=== PATIENT | male | born 1960 | race Caucasian/White ===

== ENCOUNTER 2017-04-21 07:17 | Inpatient (IN) | payer MEDICAID ==
[~2017-04-21] VITALS: Ht 177.8 cm; Wt 150.6 kg
[2017-04-21] MEDS ORDERED: SODIUM CHLORIDE 0.9% 1,000 ML IV ONE (08:14)
[2017-04-21] MEDS ORDERED: ASPirin 81 mg TAB PO ONE (08:15)
[2017-04-21] MEDS ORDERED: MORPHINE SULFATE 10 MG/ML INJ 1ML SDV IV ONE (08:15)
[2017-04-21] MEDS ORDERED: PROMETHAZINE HCL 25 MG/ML 1ML IV ONE (08:15)
[2017-04-21 08:34] LABS: Urine Bilirubin Negative (Negative); Urine Blood Negative /uL (Negative); Urine Color Yellow (Yellow); Urine Glucose 4+ mg/dL (Normal); Urine Ketone Negative (Negative); Urine Nitrite Negative (Negative); Urine RBC 1 /hpf (0 - 3)
[2017-04-21 08:56] LABS: Eosinophils # (auto) 0.2 uL; Hematocrit 51.3 % (41.0-53.0); Monocytes # (auto) 0.6 uL; Neutrophils # (auto) 5.7 uL
[2017-04-21 08:58] LABS: Basophils # (auto) 0.1 uL; Basophils % (auto) 0.7 % (0.0-2.0); Eosinophils % (auto) 2.3 % (0.0-7.0); Hemoglobin 16.9 g/dL (13.5-17.5); Lymphocytes # (auto) 1.4 uL; Lymphocytes % (auto) 17.5 % (10.0-50.0); Mean Corpuscular Hemoglobin 27.9 pg (28.0-32.0); Mean Corpuscular Hgb Conc. 32.9 g/dL (32.0-36.0); Mean Corpuscular Volume 84.8 fL (80.0-100.0); Mean Platelet Volume 9.2 fL (6.9-10.8); Monocytes % (auto) 7.8 % (0.0-12.0); Neutrophils % (auto) 71.7 % (37.0-80.0); Nucleated Red Blood Cells % 0.1 %; Red Cell Distribution Width 14.9 % (11.8-14.3); White Blood Cell 7.9 10^3/uL (4.4-10.8)
[2017-04-21 08:59] LABS: Platelet Count (auto) 141 10^3/uL (140-450)
[2017-04-21 09:10] LABS: INR 0.98 (0.9-1.15); Partial Thromboplastin Time 29.6 sec (22.64-33.71); Prothrombin Time 10.7 sec (9.37-12.3)
[2017-04-21 09:21] LABS: Albumin 3.4 g/dL (3.4-5.0); Alkaline Phosphatase 110 U/L (45-117); Anion Gap 7 (5-15); Aspartate Aminotransferase 13 U/L (15-37); BUN/Creatinine Ratio 17.6; Bilirubin, Total 0.8 mg/dL (0.2-1.0); Blood Urea Nitrogen 22 mg/dL (7-18); Calcium 8.9 mg/dL (8.5-10.1); Carbon Dioxide 28 mmol/L (21-32); Chloride 104 mmol/L (98-107); GFR African American 77 mL/min; GFR Non-African American 64 mL/min; Glucose 192 mg/dL (74-106); Magnesium 2.5 mg/dL (1.6-2.6); Potassium 4.2 mmol/L (3.5-5.1); Sodium 139 mmol/L (136-145); Total Protein 7.4 g/dL (6.4-8.2)
[2017-04-21 10:40] LABS: B-Type Natriuretic Peptide 170 pg/mL (0-100); Temperature: 21 C (20.0-25.0)
[2017-04-21] MEDS ORDERED: SODIUM CHLORIDE 0.9% 1,000 ML IV SCH (11:04)
[2017-04-21] MEDS ORDERED: NITROGLYCERIN 0.4 MG SL TAB SL PRN (11:15)
[2017-04-21] MEDS ORDERED: HYDROcodone-ACET 5/325MG TAB PO PRN (11:15)
[2017-04-21] MEDS ORDERED: ENOXAPARIN SOD 40 MG/0.4 ML SYRINGE SC ONE (11:15)
[2017-04-21] MEDS ORDERED: NITROGLYCERIN 0.2MG/HR TOPICAL PATCH TD ONE (11:15)
[2017-04-21] MEDS ORDERED: TEMAZEPAM 15 MG CAP PO PRN (11:15)
[2017-04-21] MEDS ORDERED: PROMETHAZINE HCL 25 MG/ML 1ML IV PRN (11:15)
[2017-04-21] MEDS ORDERED: LACTULOSE 20Gm/30ML SOLN PO PRN (11:15)
[2017-04-21] MEDS ORDERED: ACETAMINOPHEN 500 MG TAB PO PRN (11:15)
[2017-04-21] MEDS ORDERED: DEXTROSE (50%) 50ML SYRG IV PRN (11:15)
[2017-04-21] MEDS ORDERED: LORazepam 0.5 MG TAB PO PRN (11:15)
[2017-04-21] MEDS ORDERED: MORPHINE SULFATE 10 MG/ML INJ 1ML SDV IV PRN ×2 (11:15)
[2017-04-21] MEDS ORDERED: PANTOPRAZOLE 40 MG TAB PO ONE (11:30)
[2017-04-21] MEDS: ACCU-CHEK COMFORT CURVE STRIP VI SCH ×3 (11:48→23:30)
[2017-04-21] MEDS: InsuLIN REG 1unit/0.01ml Soln (100units/ml) SC SCH ×3 (11:53→23:32)
[2017-04-21] MEDS ORDERED: METOPROLOL TARTRATE 25 MG TAB PO ONE (12:15)
[2017-04-21] MEDS ORDERED: FUROSEMIDE 20 MG TAB PO ONE (12:15)
[2017-04-21] MEDS ORDERED: HALOPERIDOL LACTATE 5 MG/ML INJ VIAL IM PRN (18:45)
[2017-04-21] MEDS ORDERED: DIAZEPAM 5 MG/ML 2ML SYRG IV SCH (18:45)
[2017-04-21] MEDS ORDERED: ATORVASTATIN 20 MG TAB PO SCH (22:00)
[2017-04-21] MEDS: AMIODARONE HCL 200 MG TAB PO SCH (23:32)
[2017-04-21] MEDS: METHYLDOPA 250 MG TAB PO SCH (23:32)
[2017-04-21] MEDS: METOPROLOL TARTRATE 25 MG TAB PO SCH (23:32)
[2017-04-22] MEDS: SODIUM CHLORIDE 0.9% 1,000 ML IV SCH ×2 (02:23→04:35)
[2017-04-22 04:35] VITALS: BP 128/82
[2017-04-22 04:42] LABS: Cholesterol 165 mg/dL (< 200); HDL Cholesterol 27 mg/dL (40-59); LDL Cholesterol 130 mg/dL (< 100); Triglycerides 133 mg/dL (< 150)
[2017-04-22 04:45] VITALS: BP 113/61
[2017-04-22] MEDS: ACCU-CHEK COMFORT CURVE STRIP VI SCH ×4 (07:00→22:00)
[2017-04-22] MEDS: InsuLIN REG 1unit/0.01ml Soln (100units/ml) SC SCH ×4 (07:00→22:00)
[2017-04-22] MEDS ORDERED: LIDOCAINE 2%HCL (LOCAL ANESTH.) INJ 20ML MDV ONE (07:16)
[2017-04-22] MEDS ORDERED: IOHEXOL 350 MG/ML 100ML IJ ONE ×2 (07:16→09:11)
[2017-04-22] MEDS ORDERED: fentaNYL CITRATE 100 MCG/2 ML VL ONE (07:29)
[2017-04-22] MEDS ORDERED: MIDAZOLAM HCL 1MG/1ML-2 ML VIAL ONE (07:30)
[2017-04-22 08:24] VITALS: BP 109/60
[2017-04-22] MEDS ORDERED: ANGIOMAX 250 MG VIAL IV ONE (08:30)
[2017-04-22] MEDS ORDERED: ADENOSINE 128 MG in GIVE UN-DILUTED 0 ML IV ONE (08:45)
[2017-04-22] MEDS ORDERED: PANTOPRAZOLE 40 MG TAB PO SCH (10:00)
[2017-04-22] MEDS ORDERED: DIGOXIN 0.125 MG TAB PO SCH (10:00)
[2017-04-22] MEDS: ASPirin 81 mg TAB PO SCH (10:34)
[2017-04-22] MEDS: amLODIPine BESYLATE 5 MG TAB PO SCH (10:34)
[2017-04-22] MEDS: PANTOPRAZOLE 40 MG TAB PO SCH (10:34)
[2017-04-22] MEDS: AMIODARONE HCL 200 MG TAB PO SCH ×2 (10:35→23:28)
[2017-04-22] MEDS: METOPROLOL TARTRATE 25 MG TAB PO SCH ×2 (10:35→23:27)
[2017-04-22] MEDS: FUROSEMIDE 20 MG TAB PO SCH (10:35)
[2017-04-22] MEDS: METOLAZONE 5 MG TAB PO SCH (10:36)
[2017-04-22] MEDS: ENOXAPARIN SOD 40 MG/0.4 ML SYRINGE SC SCH (10:36)
[2017-04-22] MEDS: ENALAPRIL MALEATE 2.5 MG TAB PO SCH (10:36)
[2017-04-22] MEDS: NITROGLYCERIN 0.2MG/HR TOPICAL PATCH TD SCH (10:37)
[2017-04-22] MEDS ORDERED: VALS320T15 PO (11:57)
[2017-04-22] MEDS ORDERED: FURO40TA4 PO (11:57)
[2017-04-22] MEDS ORDERED: DIG0125T PO (11:57)
[2017-04-22] MEDS ORDERED: METF-371 PO (11:57)
[2017-04-22] MEDS ORDERED: AMLO5TAB2 PO (11:57)
[2017-04-22] MEDS ORDERED: HYDR25TA4 PO (11:57)
[2017-04-22] MEDS ORDERED: CARV25TA55 PO (11:57)
[2017-04-22] MEDS ORDERED: METO5TAB56 PO (11:57)
[2017-04-22] MEDS ORDERED: METH250T21 PO (11:57)
[2017-04-22] MEDS ORDERED: DAPA1TAB2 PO (11:57)
[2017-04-22] MEDS ORDERED: GLIP-116 PO (11:57)
[2017-04-22] MEDS: METHYLDOPA 250 MG TAB PO SCH ×2 (12:06→23:40)
[2017-04-22 12:58] VITALS: BP 131/88
[2017-04-22 16:57] VITALS: BP 117/75
[2017-04-22] MEDS ORDERED: SODIUM BICARBONATE 50ML VIAL 150 ML in D5W 5% 1,000 ML IV SCH (17:15)
[2017-04-22 22:42] VITALS: BP 116/60
[2017-04-22] MEDS: ATORVASTATIN 20 MG TAB PO SCH (23:28)
[2017-04-23 05:00] VITALS: BP 97/58
[2017-04-23] MEDS: InsuLIN REG 1unit/0.01ml Soln (100units/ml) SC SCH ×4 (07:00→22:00)
[2017-04-23] MEDS: ACCU-CHEK COMFORT CURVE STRIP VI SCH ×4 (07:07→22:00)
[2017-04-23 07:08] LABS: BUN/Creatinine Ratio 19.4; Calcium 8.8 mg/dL (8.5-10.1); Potassium 3.5 mmol/L (3.5-5.1)
[2017-04-23 08:00] VITALS: BP 99/86
[2017-04-23 09:00] VITALS: BP 97/59
[2017-04-23] MEDS: ENALAPRIL MALEATE 2.5 MG TAB PO SCH (10:00)
[2017-04-23] MEDS: AMIODARONE HCL 200 MG TAB PO SCH ×2 (10:00→22:54)
[2017-04-23] MEDS: ASPirin 81 mg TAB PO SCH (10:00)
[2017-04-23] MEDS: ENOXAPARIN SOD 40 MG/0.4 ML SYRINGE SC SCH (10:00)
[2017-04-23] MEDS: amLODIPine BESYLATE 5 MG TAB PO SCH (10:00)
[2017-04-23] MEDS: PANTOPRAZOLE 40 MG TAB PO SCH (10:00)
[2017-04-23] MEDS: FUROSEMIDE 20 MG TAB PO SCH (10:00)
[2017-04-23] MEDS: METHYLDOPA 250 MG TAB PO SCH ×2 (10:00→22:55)
[2017-04-23] MEDS: NITROGLYCERIN 0.2MG/HR TOPICAL PATCH TD SCH (10:00)
[2017-04-23] MEDS: METOPROLOL TARTRATE 25 MG TAB PO SCH ×2 (10:00→22:55)
[2017-04-23] MEDS: METOLAZONE 5 MG TAB PO SCH (10:00)
[2017-04-23] MEDS ORDERED: fentaNYL CITRATE 100 MCG/2 ML VL ONE (12:11)
[2017-04-23] MEDS ORDERED: ANGIOMAX 250 MG VIAL IV ONE (12:11)
[2017-04-23] MEDS ORDERED: MIDAZOLAM HCL 1MG/1ML-2 ML VIAL ONE (12:12)
[2017-04-23] MEDS ORDERED: ATROPINE SULF 0.5 MG/5ML SYR ONE (12:12)
[2017-04-23] MEDS ORDERED: DOPamine 1600MCG/ML D5W 0 ML IV ONE (12:12)
[2017-04-23] MEDS ORDERED: SODIUM CHL 0.9% 100 ML ONE (12:13)
[2017-04-23] MEDS ORDERED: LIDOCAINE 2%HCL (LOCAL ANESTH.) INJ 20ML MDV ONE (12:50)
[2017-04-23] MEDS ORDERED: IODIXANOL 320MG/ML 100ML BTL IV ONE (12:50)
[2017-04-23 13:00] VITALS: BP 145/95
[2017-04-23] MEDS ORDERED: CLOPIDOGREL 300 MG TAB ONE (15:16)
[2017-04-23] MEDS ORDERED: CLOPIDOGREL 300 MG TAB PO ONE (15:30)
[2017-04-23] MEDS ORDERED: ACETAMINOPHEN 500 MG TAB PO PRN (15:30)
[2017-04-23] MEDS ORDERED: HYDROcodone-ACET 5/325MG TAB PO PRN (15:30)
[2017-04-23 17:41] VITALS: BP 142/88
[2017-04-23 22:00] VITALS: BP 121/69
[2017-04-23] MEDS: ATORVASTATIN 20 MG TAB PO SCH (22:54)
[2017-04-24 05:00] VITALS: BP 133/89
[2017-04-24] MEDS: InsuLIN REG 1unit/0.01ml Soln (100units/ml) SC SCH ×2 (06:31→15:05)
[2017-04-24] MEDS: ACCU-CHEK COMFORT CURVE STRIP VI SCH ×2 (06:31→15:05)
[2017-04-24 06:37] LABS: Basophils # (auto) 0 uL; Basophils % (auto) 0.4 % (0.0-2.0); Eosinophils # (auto) 0.1 uL; Eosinophils % (auto) 1.6 % (0.0-7.0); Hematocrit 45.7 % (41.0-53.0); Hemoglobin 15.5 g/dL (13.5-17.5); Lymphocytes # (auto) 1.1 uL; Lymphocytes % (auto) 14.1 % (10.0-50.0); Mean Corpuscular Hemoglobin 28.5 pg (28.0-32.0); Mean Corpuscular Hgb Conc. 33.8 g/dL (32.0-36.0); Mean Corpuscular Volume 84.3 fL (80.0-100.0); Mean Platelet Volume 9.5 fL (6.9-10.8); Monocytes # (auto) 0.8 uL; Monocytes % (auto) 9.6 % (0.0-12.0); Neutrophils % (auto) 74.3 % (37.0-80.0); Nucleated Red Blood Cells % 0.2 %; Platelet Count (auto) 136 10^3/uL (140-450); Red Cell Distribution Width 14.4 % (11.8-14.3); White Blood Cell 8.1 10^3/uL (4.4-10.8)
[2017-04-24 06:54] LABS: Potassium 3.1 mmol/L (3.5-5.1)
[2017-04-24 06:59] LABS: BUN/Creatinine Ratio 18.6; Calcium 8.7 mg/dL (8.5-10.1)
[2017-04-24 09:07] VITALS: BP 106/72
[2017-04-24] MEDS: ASPirin 81 mg TAB PO SCH (09:45)
[2017-04-24] MEDS: AMIODARONE HCL 200 MG TAB PO SCH (09:46)
[2017-04-24] MEDS: METOPROLOL TARTRATE 25 MG TAB PO SCH (09:47)
[2017-04-24] MEDS: amLODIPine BESYLATE 5 MG TAB PO SCH (09:47)
[2017-04-24] MEDS: PANTOPRAZOLE 40 MG TAB PO SCH (09:48)
[2017-04-24] MEDS: ENALAPRIL MALEATE 2.5 MG TAB PO SCH (09:48)
[2017-04-24] MEDS: METOLAZONE 5 MG TAB PO SCH (09:48)
[2017-04-24] MEDS: ENOXAPARIN SOD 40 MG/0.4 ML SYRINGE SC SCH (09:50)
[2017-04-24] MEDS: FUROSEMIDE 20 MG TAB PO SCH (09:50)
[2017-04-24] MEDS ORDERED: CLOPIDOGREL BISULFATE 75 MG TAB PO SCH (10:00)
[2017-04-24] MEDS: NITROGLYCERIN 0.2MG/HR TOPICAL PATCH TD SCH (10:00)
[2017-04-24] MEDS: METHYLDOPA 250 MG TAB PO SCH (10:02)
[2017-04-24 13:25] VITALS: BP 120/71
[2017-04-24 14:49] VITALS: BP 106/72
[2017-04-24] MEDS ORDERED: ASPI-378 PO (14:57)
[2017-04-24] MEDS ORDERED: CLOP75TA28 PO (14:57)
[2017-04-24] MEDS ORDERED: ATOR20TA50 PO (14:57)
[2017-04-24] MEDS ORDERED: POTASSIUM CHL 20 Meq TABLET PO ONE (15:00)
== END 2017-04-24 15:55 | disposition home or self-care (01) | DRG 175 ==
LOC: ER 07:17 → TELE 07:18 → TELE-EAST 04-22 04:35
PROVIDERS: ADMIT Internal Medicine; ATTEND Internal Medicine
PROC: 4A023N7 Measurement of Cardiac Sampling and Pressure, Left Heart, Percutaneous Approach (ICD-10-PCS; principal; 2017-04-22)
PROC: B2111ZZ Fluoroscopy of Multiple Coronary Arteries using Low Osmolar Contrast (ICD-10-PCS; 2017-04-22)
PROC: B2151ZZ Fluoroscopy of Left Heart using Low Osmolar Contrast (ICD-10-PCS; 2017-04-22)
PROC: 027137Z Dilation of Coronary Artery, Two Arteries with Four or More Drug-eluting Intraluminal Devices, Percutaneous Approach (ICD-10-PCS; 2017-04-23)
DX: I25.10 Atherosclerotic heart disease of native coronary artery without angina pectoris (principal); E11.21 Type 2 diabetes mellitus with diabetic nephropathy; I42.9 Cardiomyopathy, unspecified; I11.0 Hypertensive heart disease with heart failure; I50.9 Heart failure, unspecified; Z68.42 Body mass index [BMI] 45.0-49.9, adult; E11.40 Type 2 diabetes mellitus with diabetic neuropathy, unspecified; E11.22 Type 2 diabetes mellitus with diabetic chronic kidney disease; E11.65 Type 2 diabetes mellitus with hyperglycemia; E66.01 Morbid (severe) obesity due to excess calories; E78.5 Hyperlipidemia, unspecified; I13.0 Hypertensive heart and chronic kidney disease with heart failure and stage 1 through stage 4 chronic kidney disease, or unspecified chronic kidney disease; I48.92 Unspecified atrial flutter; M19.90 Unspecified osteoarthritis, unspecified site; N18.2 Chronic kidney disease, stage 2 (mild); K59.00 Constipation, unspecified; F41.9 Anxiety disorder, unspecified; G47.00 Insomnia, unspecified; I83.92 Asymptomatic varicose veins of left lower extremity; I25.2 Old myocardial infarction; Z82.49 Family history of ischemic heart disease and other diseases of the circulatory system
CPT/HCPCS: 36415; 71010; 80048; 80053; 80061; 80162; 80307; 81001; 82550; 82962; 83036; 83735; 83880; 84443; 84484; 85025; 85379; 85610; 85652; 85730; 86141; 92928; 92929; 93005; 93306; 93458; 93886; 94761; 96374; 96375; 99152; 99153; C1874; C1887; J0153; J0461; J1815; J2250; Q9967

== ENCOUNTER → 2017-07-05 | Outpatient (CLI) | payer MEDICAID ==
[~2017-07-05] VITALS: Ht 1 cm; Wt 0.5 kg
[~2017-07-05] MED LIST: AMLO5TAB2 PO; ASPI-378 PO; ATOR20TA50 PO; CARV25TA55 PO; CLOP75TA28 PO; DAPA1TAB4 PO; DIG0125T PO; FURO40TA4 PO; GLIP-116 PO; METF-371 PO; METH250T21 PO; METO5TAB56 PO; VALS320T15 PO
== END | disposition home or self-care (01) ==
LOC: Rad HDHVI 13:50
PROVIDERS: ATTEND Internal Medicine Cardiovascular Disease
DX: I08.1 Rheumatic disorders of both mitral and tricuspid valves (principal); I50.9 Heart failure, unspecified; I42.9 Cardiomyopathy, unspecified
CPT/HCPCS: 93306

== ENCOUNTER → 2018-08-19 | Outpatient (CLI) | payer MEDICAID ==
[~2018-08-19] MED LIST changes: +AMLO5TAB13 PO; -AMLO5TAB2 PO
== END | disposition home or self-care (01) ==
LOC: Rad HDHVI 10:57
PROVIDERS: ATTEND Internal Medicine
DX: I35.8 Other nonrheumatic aortic valve disorders (principal); I48.91 Unspecified atrial fibrillation; I11.0 Hypertensive heart disease with heart failure; I50.9 Heart failure, unspecified; I42.9 Cardiomyopathy, unspecified
CPT/HCPCS: 93306

== ENCOUNTER → 2018-09-19 | Outpatient (CLI) | payer MEDICAID ==
[~2018-09-19] VITALS: Ht 177.8 cm; Wt 148.3 kg
[~2018-09-19] MED LIST changes: +ADENOSINE 125 MG in GIVE UN-DILUTED 0 ML IV ONE; +ADENOSINE 90 MG/30 ML INJ IV ONE
--- NOTE | 2018-09-19 17:03 | NUR ---
Patient seen for Adenosine stress test. EKG showing Atrial flutter, spoke with Dr. Parnell and new orders received and carried out. Patient educated on medication changes and verbalized understanding. Appointment made for patient to see Dr. Coker tomorrow, 09/20/18 regarding BLE pitting edema, wound to left lateral lower extremity, & atrial flutter.
== END | disposition home or self-care (01) ==
LOC: Rad HDHVI 14:08
PROVIDERS: ATTEND Internal Medicine Cardiovascular Disease
DX: E11.9 Type 2 diabetes mellitus without complications (principal); I11.0 Hypertensive heart disease with heart failure; I50.9 Heart failure, unspecified; R63.8 Other symptoms and signs concerning food and fluid intake; E29.1 Testicular hypofunction; I42.9 Cardiomyopathy, unspecified; R06.02 Shortness of breath
CPT/HCPCS: 78452; 82962; 93005; 96374; 96375; A9500; J0153

== ENCOUNTER 2019-03-28 15:49 | Inpatient (IN) | payer MEDICAID ==
[~2019-03-28] VITALS: Ht 177.8 cm; Wt 147.0 kg
[2019-03-28 08:00] VITALS: BP 111/75
[~2019-03-28 15:49] MED LIST changes: -ADENOSINE 125 MG in GIVE UN-DILUTED 0 ML IV ONE; -ADENOSINE 90 MG/30 ML INJ IV ONE; -AMLO5TAB13 PO; +AMLO5TAB15 PO; -GLIP-116 PO; +GLIP10TA9 PO
[2019-03-28 16:27] LABS: Basophils # (auto) 0 uL; Basophils % (auto) 0.5 % (0.0-2.0); Eosinophils # (auto) 0.1 uL; Eosinophils % (auto) 2.1 % (0.0-7.0); Hematocrit 42.1 % (41.0-53.0); Hemoglobin 13.4 g/dL (13.5-17.5); Lymphocytes # (auto) 0.9 uL; Lymphocytes % (auto) 17.5 % (10.0-50.0); Mean Corpuscular Hemoglobin 27.5 pg (28.0-32.0); Mean Corpuscular Hgb Conc. 31.9 g/dL (32.0-36.0); Mean Corpuscular Volume 86.3 fL (80.0-100.0); Monocytes # (auto) 0.4 uL; Neutrophils # (auto) 3.8 uL; Neutrophils % (auto) 72.9 % (37.0-80.0); Nucleated Red Blood Cells % 0.1 %; Platelet Count (auto) 164 10^3/uL (140-450); Red Blood Cells 4.88 10^6/uL (4.5-5.90); White Blood Cell 5.3 10^3/uL (4.4-10.8)
[2019-03-28 16:31] LABS: INR 1.48 (0.9-1.15); Partial Thromboplastin Time 40.2 sec (23.64-32.05)
[2019-03-28 16:34] LABS: Alanine Aminotransferase 15 U/L (16-61); Albumin 2.9 g/dL (3.4-5.0); Anion Gap 6 (5-15); Blood Urea Nitrogen 25 mg/dL (7-18); Calcium 8.5 mg/dL (8.5-10.1); Carbon Dioxide 30 mmol/L (21-32); Chloride 107 mmol/L (98-107); Glucose 156 mg/dL (74-106); Potassium 3.9 mmol/L (3.5-5.1); Sodium 143 mmol/L (136-145)
[2019-03-28 16:39] LABS: Alkaline Phosphatase 201 U/L (45-117); Aspartate Aminotransferase 13 U/L (15-37); BUN/Creatinine Ratio 17.1; GFR African American 64 mL/min; GFR Non-African American 53 mL/min; Total Protein 6.9 g/dL (6.4-8.2)
[2019-03-28] MEDS ORDERED: FUROSEMIDE 40 MG/4 ML VIAL IV ONE (17:45)
[2019-03-28] MEDS ORDERED: cefTRIAXone 1GM/50ML D5W 50 ML IV ONE (18:45)
[2019-03-28] MEDS ORDERED: cloNIDine HCL 0.1 MG TAB PO PRN (18:45)
[2019-03-28] MEDS ORDERED: NITROGLYCERIN 0.4 MG SL TAB SL PRN (18:45)
[2019-03-28] MEDS ORDERED: MORPHINE SULF INJ 2 MG/ML SYRINGE 1ML IV PRN (18:45)
--- NOTE | 2019-03-28 20:31 | NUR ---
Telemetry admit from ER Patient admitted to Telemetry unit and oriented to primary RN, unit, room, bed, and unit policies regarding patient care and visiting hours. Patient now on continuous telemetry monitoring, tele box #64 and telemetry reading on arrival to unit is sinus rhythm. Patient placed on bedside oxygen at 3 l/min, weighed by bedscale and encouraged to call if they need something. All questions and concerns addressed, patient verbalized understanding. Bed is in lowest position and locked. Call light within reach. Board updated.
--- NOTE | 2019-03-28 20:51 | NUR ---
Patient is in Atrial flutter at this time. EKG taken. Will notify hospitalist of results.
--- NOTE | 2019-03-28 20:59 | NUR ---
Spoke to REGINE Irvin and showed her EKG that revealed Atrial Flutter with rate of 63 bpm. Per TITLE ATTORNEY, continue monitoring. Notified her of patient's history of DM and elevated blood glucose on admission. Per REGINE Irvin, start regular insulin set protocol for mild scale ACHS. Order repeated, verified, and placed.
[2019-03-28] MEDS ORDERED: DEXTROSE (50%) 50ML SYRG IV PRN (21:15)
[2019-03-28 21:52] LABS: Urine Bacteria NONE SEEN /hpf (None Seen); Urine Blood Negative /uL (Negative); Urine Mucus FEW (None Seen); Urine WBC <1 /hpf (0 - 3)
[2019-03-28] MEDS: InsuLIN REG 1unit/0.01ml Soln (100units/ml) SC SCH (22:24)
[2019-03-28] MEDS: ATORVASTATIN 20 MG TAB PO SCH (22:24)
[2019-03-28] MEDS: CLINDAMYCIN 300MG IV 50 ML IV SCH (22:24)
[2019-03-28] MEDS: ACCU-CHEK COMFORT CURVE STRIP VI SCH (22:24)
[2019-03-28] MEDS: CARVEDILOL 3.125 MG TAB PO SCH (22:24)
[2019-03-28 22:50] VITALS: BP 104/65
--- NOTE | 2019-03-28 23:07 | NUR ---
Patient refused Regular Insulin for blood glucose of 145 mg/dl because he does not take regular insulin at home and his blood glucose frequently drops during the night.
[2019-03-29] MEDS ORDERED: HYDR25TA4 PO (01:44)
[2019-03-29] MEDS ORDERED: RIV20T PO (01:44)
[2019-03-29] MEDS ORDERED: INSLANTI SC (01:44)
[2019-03-29] MEDS ORDERED: LOSA-69 PO (01:44)
[2019-03-29] MEDS ORDERED: CLON0.2D6 PO (01:44)
[2019-03-29 05:23] LABS: Basophils # (auto) 0 uL; Basophils % (auto) 0.5 % (0.0-2.0); Eosinophils # (auto) 0.1 uL; Eosinophils % (auto) 2.2 % (0.0-7.0); Hematocrit 39.3 % (41.0-53.0); Hemoglobin 12.9 g/dL (13.5-17.5); Lymphocytes # (auto) 1.2 uL; Lymphocytes % (auto) 19.5 % (10.0-50.0); Mean Corpuscular Hemoglobin 28.2 pg (28.0-32.0); Mean Corpuscular Hgb Conc. 32.7 g/dL (32.0-36.0); Mean Corpuscular Volume 86.2 fL (80.0-100.0); Monocytes # (auto) 0.6 uL; Monocytes % (auto) 9.5 % (0.0-12.0); Neutrophils # (auto) 4.1 uL; Neutrophils % (auto) 68.3 % (37.0-80.0); Platelet Count (auto) 159 10^3/uL (140-450); Red Blood Cells 4.56 10^6/uL (4.5-5.90); Red Cell Distribution Width 17.2 % (11.8-14.3); White Blood Cell 5.9 10^3/uL (4.4-10.8)
[2019-03-29 05:25] VITALS: BP 114/65
[2019-03-29 05:52] LABS: BUN/Creatinine Ratio 18.4; Calcium 8.6 mg/dL (8.5-10.1); Potassium 3.5 mmol/L (3.5-5.1)
[2019-03-29] MEDS: CLINDAMYCIN 300MG IV 50 ML IV SCH ×3 (06:24→22:38)
[2019-03-29] MEDS: InsuLIN REG 1unit/0.01ml Soln (100units/ml) SC SCH ×4 (06:25→22:55)
[2019-03-29] MEDS: FUROSEMIDE 40 MG/4 ML VIAL IV SCH ×2 (06:25→17:55)
[2019-03-29] MEDS: ACCU-CHEK COMFORT CURVE STRIP VI SCH ×4 (06:26→22:56)
--- NOTE | 2019-03-29 07:00 | NUR ---
Opening Shift Note Assumed care of patient, awake and alert. No S/S of distress/SOB or pain. Instructed on POC and to call for assist PRN, will continue to monitor for changes Q1hr and PRN.
[2019-03-29 09:00] VITALS: BP 119/52
[2019-03-29] MEDS: LOSARTAN POTASSIUM 50 MG TAB PO SCH (09:51)
[2019-03-29] MEDS: DIGOXIN 0.125 MG TAB PO SCH (09:52)
[2019-03-29] MEDS: CARVEDILOL 3.125 MG TAB PO SCH (09:52)
--- NOTE | 2019-03-29 11:00 | NUR ---
collar cutter at bedside.
--- NOTE | 2019-03-29 11:15 | NUR ---
WOUND CARE NOTE: IN TO SEE PATIENT AT THIS TIME PER WOUND CARE CONSULT REQUEST. PATIENT WAS RECENTLY ADMITTED TO [facility] WITH DIAGNOSIS OF ACUTE ON CHRONIC HEART FAILURE. PATIENT'S CURRENT MATTHEW SCORE IS 19. PATIENT IS AMBULATORY, CAN SELF TURN/REPOSITION SELF. PATIENT STATES THAT HE RECENTLY WENT TO [facility] PATIENT CLINIC TO HAVE A CALLOUS OVER DFU REMOVED FROM RIGHT # 1 PLANTAR TOE. HE FURTHER STATES THAT RECENTLY, HIS L LEG DEVELOPED TWO SMALL BLISTERS THAT HAVE OPENED AND STARTED WEEPING OVER HIS EDEMATOUS, ERYTHEMIC LEG. PATIENT IS NOTED TO HAVE A 0.8 X 1.0 DFU ULCER TO RIGHT # 1 TOE. SCANT SEROUS DRAINAGE NOTED. BILATERAL LEGS ARE NOTED TO BE EDEMATOUS, WITH HEMOSIDERIN STAIN NOTED. LEFT LOWER EXTREMITY NOTED TO HAVE TWO SMALL PARTIAL THICKNESS OPEN BLISTERS. SCANT SEROUS DRAINAGE NOTED. APPLIED THERAHONEY AND OPTIFOAM GENTLE DRESSINGS TO ALL WOUNDS. ELEVATED BOTH LEGS UP, USING KNEE GATCH FUNCTION OF BED. PATIENT TOLERATED WELL, NOTING NO PAIN BY PATIENT. ADVISED PATIENT TO RETURN TO [facility] PATIENT [facility] FOR FOLLOW UP OF HIS DFU TO RIGHT # 1 TOE. PATIENT VERBALIZED UNDERSTANDING. RECOMMEND: ELEVATION OF BILATERAL FEET/LEGS UP WITH KNEE GATCH AND/OR PILLOWS FOR EDEMA CONTROL, EOD/PRN DRESSING CHANGES TO ALL WOUNDS, SKIN/WOUND CARE PLAN, DIETARY CONSULT, CONTINUED MONITORING BY WOUND CARE TEAM. Addendum: 03/29/19 at 1809 by Sharla Anaya RN Amended: Links added.
--- NOTE | 2019-03-29 12:53 | NUR ---
Nutrition Assessment/consult Notes please see attached link for complete assessment Est. Needs ABW [id number] kcal (17-20 kcal/kgBW), 89-112 gms pro (0.8-1.0 gms/kgBW r/t elev RFT wounds). Will continue to monitor pertinent labs and reassess nutrient need prn Addendum: 03/29/19 at [address] Amended: Links added.
--- NOTE | 2019-03-29 14:45 | NUR ---
Dr. Lakhani, Hospitalist, at bedside. New orders received.
[2019-03-29] MEDS ORDERED: POTASSIUM CHL 20 Meq TABLET PO ONE (16:15)
[2019-03-29 17:00] VITALS: BP 148/84
[2019-03-29] MEDS: RIVAROXABAN 20 MG TAB PO SCH (17:54)
--- NOTE | 2019-03-29 18:10 | NUR ---
WAREHOUSE SPECIALIST, Eunice Delgado, with Cardiology, at bedside. New orders received.
[2019-03-29] MEDS: cefTRIAXone 1GM/50ML D5W 50 ML IV SCH (18:26)
[2019-03-29 22:00] VITALS: BP 126/77
[2019-03-29] MEDS: ATORVASTATIN 20 MG TAB PO SCH (22:39)
[2019-03-29] MEDS: CARVEDILOL 12.5 MG TAB PO SCH (22:40)
[2019-03-30 05:00] VITALS: BP 129/64
[2019-03-30 05:50] LABS: Basophils # (auto) 0 uL; Basophils % (auto) 0.4 % (0.0-2.0); Eosinophils # (auto) 0.1 uL; Eosinophils % (auto) 2.1 % (0.0-7.0); Hematocrit 41.8 % (41.0-53.0); Hemoglobin 13.6 g/dL (13.5-17.5); Lymphocytes # (auto) 0.9 uL; Lymphocytes % (auto) 14.9 % (10.0-50.0); Mean Corpuscular Hemoglobin 28.1 pg (28.0-32.0); Mean Corpuscular Hgb Conc. 32.6 g/dL (32.0-36.0); Mean Corpuscular Volume 86.1 fL (80.0-100.0); Monocytes # (auto) 0.5 uL; Monocytes % (auto) 7.9 % (0.0-12.0); Neutrophils # (auto) 4.7 uL; Neutrophils % (auto) 74.7 % (37.0-80.0); Platelet Count (auto) 157 10^3/uL (140-450); Red Blood Cells 4.86 10^6/uL (4.5-5.90); Red Cell Distribution Width 16.9 % (11.8-14.3); White Blood Cell 6.3 10^3/uL (4.4-10.8)
[2019-03-30 06:15] LABS: BUN/Creatinine Ratio 19.5; Calcium 8.8 mg/dL (8.5-10.1); Magnesium 2.5 mg/dL (1.6-2.6); Potassium 3.7 mmol/L (3.5-5.1)
[2019-03-30] MEDS: CLINDAMYCIN 300MG IV 50 ML IV SCH ×3 (06:37→21:54)
[2019-03-30] MEDS: FUROSEMIDE 40 MG/4 ML VIAL IV SCH ×2 (06:39→17:31)
[2019-03-30] MEDS: ACCU-CHEK COMFORT CURVE STRIP VI SCH ×4 (06:40→21:54)
[2019-03-30] MEDS: InsuLIN REG 1unit/0.01ml Soln (100units/ml) SC SCH ×4 (06:40→21:55)
--- NOTE | 2019-03-30 07:30 | NUR ---
Opening Shift Note Assumed care of patient, awake, alert, and oriented x4, and sitting on the edge of the bed eating breakfast. No S/S of distress/SOB or pain. IV is in the left wrist 20 gauge and is asymptomatic, intact, patent, and saline locked. Bed is locked and in lowest position and call light is within reach. Instructed on POC and to call for assist PRN, and patient verbalized understanding. Will continue to monitor for changes Q1hr and PRN.
[2019-03-30 09:00] VITALS: BP 130/79
[2019-03-30] MEDS: POTASSIUM CHL 20 Meq TABLET PO SCH (10:38)
[2019-03-30] MEDS: CLOPIDOGREL BISULFATE 75 MG TAB PO SCH (10:38)
[2019-03-30] MEDS: LOSARTAN POTASSIUM 50 MG TAB PO SCH (10:42)
[2019-03-30] MEDS: CARVEDILOL 12.5 MG TAB PO SCH ×2 (10:44→21:54)
[2019-03-30] MEDS: DIGOXIN 0.125 MG TAB PO SCH (10:44)
--- NOTE | 2019-03-30 11:00 | NUR ---
Dr. Lakhani, Hospitalist, at bedside.
--- NOTE | 2019-03-30 11:22 | NUR ---
Dr. Lakhani, Hospitalist, gave patient permission to shower.
--- NOTE | 2019-03-30 11:43 | NUR ---
IV removal IV DC'd with clean sterile technique, catheter fully intact. Pressure dressing applied to site. Patient tolerated well.
--- NOTE | 2019-03-30 14:00 | NUR ---
Patient's family members have many questions associated with the patient's current health status and current plan of care; informed Dr. Lakhani, Hospitalist, of their concerns, and to please address family at bedside.
--- NOTE | 2019-03-30 14:50 | NUR ---
IV insertion IV access obtained, via clean sterile technique by inserting 22 gauge catheter at LEFT HAND after 1 attempt. IV secured properly. No trauma to site. Patient tolerated well.
--- NOTE | 2019-03-30 15:30 | NUR ---
Dr. Coker, Animal Technician, at bedside.
[2019-03-30 17:00] VITALS: BP 157/88
[2019-03-30] MEDS: cefTRIAXone 1GM/50ML D5W 50 ML IV SCH (17:30)
[2019-03-30] MEDS: RIVAROXABAN 20 MG TAB PO SCH (17:31)
[2019-03-30] MEDS ORDERED: LOSARTAN POTASSIUM 50 MG TAB PO ONE (18:45)
--- NOTE | 2019-03-30 19:20 | NUR ---
Opening Shift Note Received report from Ana Maria FITZPATRICK. Assumed care of patient, awake and alert, at bedside. No S/S of distress/SOB or pain. Instructed on POC and to call for assist PRN, will continue to monitor for changes Q1hr and PRN.
[2019-03-30] MEDS: ATORVASTATIN 20 MG TAB PO SCH (21:54)
[2019-03-30 22:00] VITALS: BP 139/79
[2019-03-31 05:00] VITALS: BP 134/78
--- NOTE | 2019-03-31 06:02 | NUR ---
Patient complaining of R hand pain, swelling noted. 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 Patient does not have pain medication order. Paged hospitalist to request pain medication, awaiting for call back.
[2019-03-31] MEDS: CLINDAMYCIN 300MG IV 50 ML IV SCH ×3 (06:20→21:58)
[2019-03-31] MEDS: ACCU-CHEK COMFORT CURVE STRIP VI SCH ×4 (06:20→22:12)
[2019-03-31] MEDS: FUROSEMIDE 40 MG/4 ML VIAL IV SCH ×2 (06:20→18:14)
[2019-03-31] MEDS: InsuLIN REG 1unit/0.01ml Soln (100units/ml) SC SCH ×4 (06:31→22:00)
[2019-03-31 07:12] LABS: BUN/Creatinine Ratio 18.9; Calcium 8.5 mg/dL (8.5-10.1); Potassium 3.9 mmol/L (3.5-5.1)
--- NOTE | 2019-03-31 07:23 | NUR ---
Care endorsed to Stanislaw FITZPATRICK.
--- NOTE | 2019-03-31 07:30 | NUR ---
OPENING SHIFT NOTE PATIENT RESTING IN BED. RESPIRATIONS EVEN AND UNLABORED. NO S/S OF DISTRESS NOTED AT THIS TIME. PATIENT UPDATED ON POC. ALL QUESTIONS ANSWERED. BED IN LOWEST LOCKED POSITION WITH CALL LIGHT WITHIN REACH.
[2019-03-31 09:06] VITALS: BP 116/68
[2019-03-31] MEDS: LOSARTAN POTASSIUM 50 MG TAB PO SCH (10:00)
[2019-03-31] MEDS: CARVEDILOL 12.5 MG TAB PO SCH ×2 (10:00→22:11)
[2019-03-31] MEDS: DIGOXIN 0.125 MG TAB PO SCH (10:00)
--- NOTE | 2019-03-31 10:00 | NUR ---
SPOKE TO Lizzie HAMMER REGARDING PATIENT STATUS. RECEIVED ORDER FOR STRESS TEST. TORB. WILL CONTINUE CARE.
[2019-03-31] MEDS ORDERED: GIVE UN DILUTED IV STA (10:04)
[2019-03-31] MEDS ORDERED: ADENOSINE IV STA (10:04)
[2019-03-31] MEDS: POTASSIUM CHL 20 Meq TABLET PO SCH (10:17)
[2019-03-31] MEDS: CLOPIDOGREL BISULFATE 75 MG TAB PO SCH (10:17)
[2019-03-31] MEDS: SPIRONOLACTONE 25 MG TAB PO SCH (10:18)
--- NOTE | 2019-03-31 10:30 | NUR ---
IV insertion IV access obtained, via clean sterile technique by inserting 20 gauge catheter at RFA after 1 attempt(s). IV secured properly. No trauma to site. Patient tolerated well. NOTE:
[2019-03-31] MEDS ORDERED: NAPROXEN 500 MG TAB PO ONE (11:15)
[2019-03-31 13:00] VITALS: BP 147/76
[2019-03-31 17:00] VITALS: BP 136/71
[2019-03-31 17:06] LABS: Urine Bacteria FEW /hpf (None Seen); Urine Blood Negative /uL (Negative); Urine Mucus FEW (None Seen); Urine Specific Gravity 1.012 (1.001-1.035); Urine WBC 11 /hpf (0 - 3)
[2019-03-31] MEDS: RIVAROXABAN 20 MG TAB PO SCH (18:13)
[2019-03-31] MEDS: cefTRIAXone 1GM/50ML D5W 50 ML IV SCH (18:22)
--- NOTE | 2019-03-31 19:00 | NUR ---
ENDORSED CARE TO NANETTE SHIELDS.
--- NOTE | 2019-03-31 19:20 | NUR ---
Assumed care of patient who is A&Ox4. Currently on 2L NC with no s/s of distress; denies SOB and pain at this time. 2+ pitting edema to BLE noted. 2 open areas on left lateral lower leg, covered with optifoam; minimal serous drainage noted. DFU on plantar surface of right great toe; covered with Optifoam. minimal serous drainage noted. Patient reports peripheral neuropathy in BLE. Ambulates with the use of a cane at baselline; cane is not present at the bedside. POC discussed with patient and all questions answered. Bed is in low locked position with side rails up x2. Call light is within reach. Will continue care.
[2019-03-31] MEDS: NAPROXEN 500 MG TAB PO SCH (21:56)
[2019-03-31] MEDS: ATORVASTATIN 20 MG TAB PO SCH (21:57)
[2019-03-31 22:00] VITALS: BP 129/79
[2019-04-01] VITALS (7 sets, daily range): BP systolic 119–144; BP diastolic 65–88
[2019-04-01] MEDS: FUROSEMIDE 40 MG/4 ML VIAL IV SCH ×2 (05:40→18:36)
[2019-04-01] MEDS: CLINDAMYCIN 300MG IV 50 ML IV SCH ×3 (05:41→21:45)
[2019-04-01 06:11] LABS: Potassium 4.1 mmol/L (3.5-5.1)
[2019-04-01 06:16] LABS: BUN/Creatinine Ratio 22.5; Calcium 8.4 mg/dL (8.5-10.1)
[2019-04-01] MEDS: InsuLIN REG 1unit/0.01ml Soln (100units/ml) SC SCH ×4 (06:36→22:00)
[2019-04-01] MEDS: ACCU-CHEK COMFORT CURVE STRIP VI SCH ×4 (06:36→21:59)
[2019-04-01] MEDS: CARVEDILOL 12.5 MG TAB PO SCH ×2 (11:20→21:46)
[2019-04-01] MEDS: SPIRONOLACTONE 25 MG TAB PO SCH (11:20)
[2019-04-01] MEDS: POTASSIUM CHL 20 Meq TABLET PO SCH (11:21)
[2019-04-01] MEDS: LOSARTAN POTASSIUM 50 MG TAB PO SCH (11:21)
[2019-04-01] MEDS: PANTOPRAZOLE 40 MG TAB PO SCH (11:22)
[2019-04-01] MEDS: CLOPIDOGREL BISULFATE 75 MG TAB PO SCH (11:22)
[2019-04-01] MEDS: NAPROXEN 500 MG TAB PO SCH ×2 (11:22→21:46)
[2019-04-01] MEDS: DIGOXIN 0.125 MG TAB PO SCH (11:22)
--- NOTE | 2019-04-01 12:13 | NUR ---
Nutrition Follow-up Notes Wt.: 147.0 kg Pt was sleeping with no family by bedside. per records pt s/p stress test. per records pt with acute on chronic CHF and cardiomyopathy. pt is currently on 2 gm na diet with adequate PO of > 75% x 4 per RN doc Est. Needs ABW [id number] kcal (17-20 kcal/kgBW), 89-112 gms pro (0.8-1.0 gms/kgBW r/t elev RFT wounds). Will continue to monitor pertinent labs and reassess nutrient need prn Labs: BUN 27 H, GLU 140 H, CA 8.4 L. Skin: Rodríguez scale 18, mod risk skin intact per RN doc GI: Pt has no BM reported per angle roll operator. PES: Decreased nutrient needs r/t adiposity aeb pt`s high BMI of 47.3 kgm2 Altered nutrition related lab values r/t current/chronic medical condition aeb elev RFT Will continue to monitor PO intake, skin status, pertinent labs and weight trend. F/u in 3-5 days. Rec.: 1.) refer to CDE on DC. 2) consider mVI/C bid. 3) continue current plan of care
[2019-04-01] MEDS ORDERED: PANT40TA2 PO (13:25)
[2019-04-01] MEDS ORDERED: SPIR50TA2 PO (13:25)
[2019-04-01] MEDS ORDERED: LOSA-39 PO (13:25)
[2019-04-01] MEDS ORDERED: FURO1TAB31 PO (13:25)
--- NOTE | 2019-04-01 14:00 | NUR ---
respiratory therapy to check patient's oxygen saturation on room air.
--- NOTE | 2019-04-01 14:30 | NUR ---
the patient's oxygen on room air goes into the high 80 percents. abg drawn and results reported to Dr. Lakhani.
--- NOTE | 2019-04-01 16:05 | NUR ---
PAGED AIR AND HYDRONIC BALANCING TECHNICIAN LIEUTENANT SHIFT SUPERVISOR TO HELP ARRANGE HOME 02. AWAITING CALL BACK.
--- NOTE | 2019-04-01 16:30 | NUR ---
PAGED SCHOOL HEALTH ASSISTANT PARTS COUNTER CLERK TO HELP SET UP THE PATIENT WITH HOME 02.
--- NOTE | 2019-04-01 16:36 | NUR ---
SPOKE WITH FLY. OBTAINED NUMBERS AND FAXES FOR THE COMPANY THAT NEEDS TO BE CONTACTED. WILL FAX OVER APPROPRIATE DOCUMENTS TO [facility]. WILL FOLLOW UP CALL ONE I FAX OVER THE DOCUMENTS.
--- NOTE | 2019-04-01 16:46 | NUR ---
DOCUMENTS FAXED OVER TO SG.
--- NOTE | 2019-04-01 17:16 | NUR ---
CALLED - [phone] TO FOLLOW UP ON THE DOCUMENTS THAT HAVE BEEN FAXED. NO ANSWER X2. LEFT A MESSAGE ON THE SECOND CALL. AWAITING TO HEAR BACK FROM SG.
--- NOTE | 2019-04-01 18:15 | NUR ---
DRESSING CHANGED AND DISCHARGE PHOTOS TAKEN OF THE PATIENT'S WOUNDS TO THE RIGHT BIG TOE AND LEFT LEG. DRESSING REAPPLIED PER DOCTOR'S ORDERS.
[2019-04-01] MEDS: RIVAROXABAN 20 MG TAB PO SCH (18:36)
[2019-04-01] MEDS: cefTRIAXone 1GM/50ML D5W 50 ML IV SCH (18:36)
--- NOTE | 2019-04-01 18:36 | NUR ---
TRIED TO CONTACT [facility] AGAIN PER CHARGE NURSE'S RECOMMENDATION. ONLY GOT A BUSY SIGNAL. THE FAMILY TRIED TO GIVE CONTACT INFORMATION FOR COMPANIES THEY USE TO GET THIER OXYGEN. I INFORMED THEM THAT WE CAN ONLY USE THE COMPANY THAT THE MOTEL FRONT DESK CLERK HAS PROVIDED. I INFORMED THEM OF THE DANGERS OF SENDING OUT PATIENT INFORMATION TO UNKNOWN AND UNVERIFIED SOURCES. AT THIS POINT IN TIME THE PATIENT'S DISCHARGE WILL BE HELD PER DR. ANDREA'S ORDERS.
--- NOTE | 2019-04-01 19:12 | NUR ---
SPOKE WITH SG. THEY WANTED TO KNOW IF WE HAD AN AUTHORIZATION NUMBER FROM THE INSURANCE AND I TOLD THEM THAT NOT TO MY KNOWLEDGE. I INFORMED THEM THAT WE ARE AIMING FOR A DISCHARGE TOMORROW. WILL WORK ON GETTING AUTHORIZATION NUMBER TOMORROW. WILL INFORM PATIENT AND FAMILY.
--- NOTE | 2019-04-01 19:20 | NUR ---
opening shift note Assumed care of patient who is currently sitting up at the bedside. Patient is A&Ox4. Currently on 3L NC; no distress noted and patient denies SOB and pain. POC discussed with patient and all questions answered. Patient is ambulatory with the use of a cane at baseline, however cane is not present at the bedside. Dressings to right great toe and left lateral lower leg are CDI, changed today by day shift nurse. Bed is in low locked position with side rails up x2. Call light is within reach. Will continue to monitor for changes PRN.
[2019-04-01] MEDS: ATORVASTATIN 20 MG TAB PO SCH (21:45)
--- NOTE | 2019-04-01 22:37 | NUR ---
Patient reports dryness and minor bleeding of nares r/t NC use. Humidification added to bedside oxygen. Patient tolerates well.
[2019-04-02 05:42] VITALS: BP 139/67
[2019-04-02] MEDS: CLINDAMYCIN 300MG IV 50 ML IV SCH ×2 (06:10→14:34)
[2019-04-02] MEDS: FUROSEMIDE 40 MG/4 ML VIAL IV SCH (06:22)
[2019-04-02] MEDS: ACCU-CHEK COMFORT CURVE STRIP VI SCH ×3 (06:22→17:00)
[2019-04-02] MEDS: InsuLIN REG 1unit/0.01ml Soln (100units/ml) SC SCH ×3 (06:23→17:00)
[2019-04-02 08:00] VITALS: BP 131/80
--- NOTE | 2019-04-02 08:20 | NUR ---
SPOKE WITH POWER GENERATION TURBINE ROOM OPERATOR FLY. AT THIS POINT WE ARE AWAITING FOR AUTHORIZATION FROM [facility] FOR THE HOME OXYGEN APPROVAL.
[2019-04-02 08:52] VITALS: BP 139/67
[2019-04-02 09:00] VITALS: BP 131/80
--- NOTE | 2019-04-02 09:28 | NUR ---
SPOKE WITH SG AND GAVE THEM THE AUTHORIZATION AND CONFIRMED THE ORDER. THE PATIENT'S OXYGEN WILL ARRIVE IN ABOUT 2 HOURS ACCORDING TO SG [employer]MET[employer] SALES COUNTER MANAGER.
--- NOTE | 2019-04-02 09:36 | NUR ---
SPOKE WITH ANNALISE FROM . THEY CANNOT FIND RECORD OF THE AUTHORIZATION NUMBER WITH [facility]. THEY CANNOT SEND THE OXYGEN UNTIL THEY HAVE THAT AUTHORIZATION. FLY PAGED TO CONFIRM AUTHORIZATION NUMBER. AWAITING CALL BACK FROM FLY.
[2019-04-02] MEDS: CARVEDILOL 12.5 MG TAB PO SCH (10:36)
[2019-04-02] MEDS: SPIRONOLACTONE 25 MG TAB PO SCH (10:36)
[2019-04-02] MEDS: LOSARTAN POTASSIUM 50 MG TAB PO SCH (10:37)
[2019-04-02] MEDS: POTASSIUM CHL 20 Meq TABLET PO SCH (10:37)
[2019-04-02] MEDS: DIGOXIN 0.125 MG TAB PO SCH (10:38)
[2019-04-02] MEDS: CLOPIDOGREL BISULFATE 75 MG TAB PO SCH (10:38)
[2019-04-02] MEDS: NAPROXEN 500 MG TAB PO SCH (10:38)
[2019-04-02] MEDS: PANTOPRAZOLE 40 MG TAB PO SCH (10:38)
--- NOTE | 2019-04-02 12:24 | NUR ---
Karen returned page. obtained the fax number from karen for [employer]. order and facesheet faxed over to [employer]. added a comment to the form that SG reported that they cannot see the authorization number when searching for it. will await word back that the patient is cleared from insurance.
[2019-04-02 13:00] VITALS: BP 120/76
--- NOTE | 2019-04-02 14:25 | NUR ---
spoke with matheus from . I gave her the phone number that Cesilia gave me so [facility] can call and confirm the authorization of the oxygen order. awaiting to hear back on the status of the oxygen delivery.
--- NOTE | 2019-04-02 15:14 | NUR ---
called rosemary of [facility]. no answer, left a message. i gave her the number for matheus from . i asked her to give matheus a call to get the authorization through for the oxygen delivery. awaiting a call back.
--- NOTE | 2019-04-02 16:15 | NUR ---
spoke with matheus from . the oxygen is approved and will be delivered in about 2 hours. patient and his are aware.
--- NOTE | 2019-04-02 17:30 | NUR ---
Discharge instructions given as ordered. Encourage to follow up with PMD as instructed. All questions and concerns addressed. Patient verbalized understanding. IV removed with catheter intact, pressure dressing applied. Telemetry unit returned to ICU. Patient ambulated to vehicle with oxygen and all personal belongings, accompanied by staff and family member. No distress noted at time of departure.
--- NOTE | 2019-04-03 16:41 | NUR ---
concreting supervisor 04/01/19 ingredient handler I received a page from Nicolas FITZPATRICK stating patient needs home 02. Per Katelyn at [facility] she has authorized H [id number]. I informed Nicolas to send SG the face sheet, h & P, order, med list, and ABG. Patient was discharged home on 04/02/19 with home 02. Addendum: 04/03/19 at 1645 by Cesilia NOWAK Amended: Links added.
== END 2019-04-02 17:30 | disposition home or self-care (01) | DRG 194 ==
LOC: ER 15:49 → TELE 16:00 → TELE-WESTW 20:19
PROVIDERS: ADMIT Nurse Practitioner Acute Care; ATTEND Internal Medicine
DX: I13.2 Hypertensive heart and chronic kidney disease with heart failure and with stage 5 chronic kidney disease, or end stage renal disease (principal); J96.00 Acute respiratory failure, unspecified whether with hypoxia or hypercapnia; N17.0 Acute kidney failure with tubular necrosis; E11.21 Type 2 diabetes mellitus with diabetic nephropathy; D68.59 Other primary thrombophilia; E44.0 Moderate protein-calorie malnutrition; E11.22 Type 2 diabetes mellitus with diabetic chronic kidney disease; N18.6 End stage renal disease; E66.01 Morbid (severe) obesity due to excess calories; I50.43 Acute on chronic combined systolic (congestive) and diastolic (congestive) heart failure; I48.92 Unspecified atrial flutter; I48.20 Chronic atrial fibrillation, unspecified; L03.115 Cellulitis of right lower limb; E78.5 Hyperlipidemia, unspecified; I25.10 Atherosclerotic heart disease of native coronary artery without angina pectoris; I70.0 Atherosclerosis of aorta; Z77.22 Contact with and (suspected) exposure to environmental tobacco smoke (acute) (chronic); I87.2 Venous insufficiency (chronic) (peripheral); L03.116 Cellulitis of left lower limb; I25.5 Ischemic cardiomyopathy; Z68.42 Body mass index [BMI] 45.0-49.9, adult; Z79.02 Long term (current) use of antithrombotics/antiplatelets; Z79.4 Long term (current) use of insulin; Z79.82 Long term (current) use of aspirin; Z80.6 Family history of leukemia; Z80.8 Family history of malignant neoplasm of other organs or systems; Z82.49 Family history of ischemic heart disease and other diseases of the circulatory system; Z95.5 Presence of coronary angioplasty implant and graft
CPT/HCPCS: 36415; 36600; 71046; 78452; 80048; 80053; 80061; 80162; 81001; 82805; 82962; 83036; 83735; 83880; 84484; 85025; 85610; 85730; 93005; 93017; 93306; 94761; 96374; 99291; G0378; J0153; J0696; J1815; J3490

== ENCOUNTER 2020-01-07 18:23 | Inpatient (IN) | payer MEDICAID ==
[~2020-01-07] VITALS: Ht 167.6 cm; Wt 123.0 kg
[~2020-01-07 18:23] MED LIST changes: -AMLO5TAB15 PO; +CLON0.2D6 PO; +FURO1TAB31 PO; -FURO40TA4 PO; +INSLANTI SC; +LOSA-39 PO; -METH250T21 PO; -METO5TAB56 PO; +PANT40TA2 PO; +RIV20T PO; +SPIR50TA2 PO; -VALS320T15 PO
[2020-01-07 19:36] LABS: Basophils # (auto) 0 10 ^3/uL (0-0.2); Basophils % (auto) 0.6 % (0.0-2.0); Eosinophils # (auto) 0 10 ^3/uL (0-0.8); Eosinophils % (auto) 0.1 % (0.0-7.0); Hematocrit 46.1 % (41.0-53.0); Hemoglobin 15.2 g/dL (13.5-17.5); Lymphocytes # (auto) 0.5 10 ^3/uL (0.4-5.4); Lymphocytes % (auto) 10.7 % (10.0-50.0); Mean Corpuscular Hemoglobin 28.9 pg (28.0-32.0); Mean Corpuscular Hgb Conc. 32.8 g/dL (32.0-36.0); Monocytes # (auto) 0.4 10 ^3/uL (0-1.3); Monocytes % (auto) 8.4 % (0.0-12.0); Neutrophils # (auto) 3.9 10 ^3/uL (1.6-8.6); Neutrophils % (auto) 80.2 % (37.0-80.0); Nucleated Red Blood Cells % 0.2 %; Platelet Count (auto) 108 10^3/uL (140-450); Red Blood Cells 5.25 10^6/uL (4.5-5.90); Red Cell Distribution Width 15.6 % (11.8-14.3); White Blood Cell 4.9 10^3/uL (4.4-10.8)
[2020-01-07 19:56] LABS: Alanine Aminotransferase 39 U/L (16-61); Albumin 2.9 g/dL (3.4-5.0); Anion Gap 7 (5-15); Aspartate Aminotransferase 36 U/L (15-37); BUN/Creatinine Ratio 22.4; Blood Urea Nitrogen 35 mg/dL (7-18); Calcium 8.3 mg/dL (8.5-10.1); Carbon Dioxide 25 mmol/L (21-32); Chloride 98 mmol/L (98-107); GFR African American 59 mL/min; GFR Non-African American 49 mL/min; Glucose 251 mg/dL (74-106); Sodium 130 mmol/L (136-145)
[2020-01-07 20:01] LABS: Alkaline Phosphatase 146 U/L (45-117); Bilirubin, Total 1.2 mg/dL (0.2-1.0); Total Protein 7.6 g/dL (6.4-8.2)
[2020-01-08 05:18] LABS: Urine Bacteria NONE SEEN /hpf (None Seen); Urine Blood TRACE /uL (Negative); Urine Hyaline Cast MANY /lpf (0 - 2); Urine Mucus FEW (None Seen); Urine Specific Gravity 1.022 (1.001-1.035); Urine WBC 3 /hpf (0 - 3)
[2020-01-08] MEDS ORDERED: HYDROcodone-ACET 5/325MG TAB PO PRN (05:30)
[2020-01-08] MEDS ORDERED: MORPHINE SULF INJ 2 MG/ML SYRINGE 1ML IV PRN (05:30)
[2020-01-08] MEDS ORDERED: DOCUSATE SOD 100 MG CAP PO PRN (05:30)
[2020-01-08] MEDS ORDERED: cloNIDine 0.2 mg/24hr 7DAY PATCH TD SCH (05:30)
[2020-01-08] MEDS ORDERED: DEXTROSE (50%) 50ML SYRG IV PRN (05:30)
[2020-01-08] MEDS ORDERED: ACETAMINOPHEN 325 MG TAB PO PRN (05:30)
[2020-01-08] MEDS ORDERED: ONDANSETRON HCL 4 MG/2 ML VIAL IV PRN (05:30)
[2020-01-08] MEDS: ACCU-CHEK COMFORT CURVE STRIP VI SCH ×5 (07:47→23:35)
[2020-01-08] MEDS: metFORMIN HYDROCHLORIDE 850 MG TAB PO SCH ×2 (07:47→16:00)
[2020-01-08] MEDS: PANTOPRAZOLE 40 MG TAB PO SCH (07:49)
[2020-01-08] MEDS: CLOPIDOGREL BISULFATE 75 MG TAB PO SCH (07:49)
[2020-01-08] MEDS: FUROSEMIDE 40 MG TAB PO SCH ×2 (07:50→22:49)
[2020-01-08] MEDS: RIVAROXABAN 10 MG TAB PO SCH (07:54)
[2020-01-08] MEDS: InsuLIN REG 1unit/0.01ml Soln (100units/ml) SC SCH ×5 (08:00→23:35)
[2020-01-08 09:33] LABS: Basophils # (auto) 0 10 ^3/uL (0-0.2); Basophils % (auto) 0.8 % (0.0-2.0); Eosinophils # (auto) 0 10 ^3/uL (0-0.8); Eosinophils % (auto) 0.1 % (0.0-7.0); Hematocrit 46.2 % (41.0-53.0); Hemoglobin 15.5 g/dL (13.5-17.5); Lymphocytes # (auto) 0.4 10 ^3/uL (0.4-5.4); Mean Corpuscular Hemoglobin 29.2 pg (28.0-32.0); Mean Corpuscular Hgb Conc. 33.6 g/dL (32.0-36.0); Monocytes # (auto) 0.4 10 ^3/uL (0-1.3); Monocytes % (auto) 5.9 % (0.0-12.0); Neutrophils # (auto) 5.4 10 ^3/uL (1.6-8.6); Neutrophils % (auto) 87.2 % (37.0-80.0); Platelet Count (auto) 132 10^3/uL (140-450); Red Blood Cells 5.32 10^6/uL (4.5-5.90); Red Cell Distribution Width 15.2 % (11.8-14.3); White Blood Cell 6.2 10^3/uL (4.4-10.8)
[2020-01-08 09:57] LABS: Calcium 8.3 mg/dL (8.5-10.1); Potassium 4.9 mmol/L (3.5-5.1)
[2020-01-08 10:00] LABS: BUN/Creatinine Ratio 25.8
[2020-01-08] MEDS: INSULIN LANTUS (GLARGINE) 1 /0.01ml (100units/ml) SC SCH (10:00)
[2020-01-08] MEDS ORDERED: ASPirin-EC 81 mg tab PO SCH (10:00)
[2020-01-08] MEDS ORDERED: DIGOXIN 0.125 MG TAB PO SCH (10:00)
[2020-01-08] MEDS: ATORVASTATIN 20 MG TAB PO SCH (22:48)
[2020-01-09] MEDS: InsuLIN REG 1unit/0.01ml Soln (100units/ml) SC SCH ×5 (04:00→20:22)
[2020-01-09] MEDS: ACCU-CHEK COMFORT CURVE STRIP VI SCH ×5 (04:14→20:21)
[2020-01-09 05:28] VITALS: BP 115/76
[2020-01-09] MEDS: metFORMIN HYDROCHLORIDE 850 MG TAB PO SCH (06:34)
[2020-01-09 08:00] VITALS: BP 101/62
[2020-01-09 08:13] LABS: Basophils # (auto) 0.1 10 ^3/uL (0-0.2); Basophils % (auto) 0.9 % (0.0-2.0); Eosinophils # (auto) 0 10 ^3/uL (0-0.8); Eosinophils % (auto) 0.1 % (0.0-7.0); Hematocrit 44.4 % (41.0-53.0); Hemoglobin 14.9 g/dL (13.5-17.5); Lymphocytes # (auto) 0.5 10 ^3/uL (0.4-5.4); Lymphocytes % (auto) 8.5 % (10.0-50.0); Mean Corpuscular Hemoglobin 29.5 pg (28.0-32.0); Mean Corpuscular Hgb Conc. 33.5 g/dL (32.0-36.0); Mean Corpuscular Volume 88.3 fL (80.0-100.0); Monocytes # (auto) 0.4 10 ^3/uL (0-1.3); Monocytes % (auto) 6.6 % (0.0-12.0); Neutrophils # (auto) 4.7 10 ^3/uL (1.6-8.6); Neutrophils % (auto) 83.9 % (37.0-80.0); Nucleated Red Blood Cells % 0.4 %; Platelet Count (auto) 123 10^3/uL (140-450); Red Blood Cells 5.03 10^6/uL (4.5-5.90); Red Cell Distribution Width 15.2 % (11.8-14.3); White Blood Cell 5.6 10^3/uL (4.4-10.8)
[2020-01-09 08:23] LABS: BUN/Creatinine Ratio 24.8; Calcium 8.3 mg/dL (8.5-10.1); Potassium 5.4 mmol/L (3.5-5.1)
[2020-01-09 09:00] VITALS: BP 101/62
[2020-01-09] MEDS: PANTOPRAZOLE 40 MG TAB PO SCH (09:48)
[2020-01-09] MEDS: RIVAROXABAN 10 MG TAB PO SCH (09:48)
[2020-01-09] MEDS: CLOPIDOGREL BISULFATE 75 MG TAB PO SCH (09:48)
[2020-01-09] MEDS: FUROSEMIDE 40 MG TAB PO SCH (09:48)
[2020-01-09] MEDS: INSULIN LANTUS (GLARGINE) 1 /0.01ml (100units/ml) SC SCH (10:02)
[2020-01-09] MEDS ORDERED: ALBUTEROL SULF 2.5 MG/0.5ML(0.5%) NEB SOLN NEB ONE (11:15)
[2020-01-09] MEDS ORDERED: FUROSEMIDE 40 MG/4 ML VIAL IV ONE (11:15)
[2020-01-09] MEDS ORDERED: InsuLIN REG 1unit/0.01ml Soln (100units/ml) IV ONE (11:15)
[2020-01-09] MEDS ORDERED: SODIUM CHLORIDE 0.9% 500 ML IV ONE (11:15)
[2020-01-09] MEDS ORDERED: SODIUM BICARBONATE 8.4% INJ 50ML SYRINGE IV ONE (11:15)
[2020-01-09 12:52] VITALS: BP 110/61
[2020-01-09] MEDS ORDERED: metroNIDAZOLE 500 MG TAB PO ONE (14:15)
[2020-01-09] MEDS ORDERED: CIPROFLOXACIN HCL 500 MG TAB PO ONE (14:15)
[2020-01-09 22:00] VITALS: BP 118/55
[2020-01-09] MEDS: metroNIDAZOLE 500 MG TAB PO SCH (22:46)
[2020-01-09] MEDS: ATORVASTATIN 20 MG TAB PO SCH (22:46)
[2020-01-09] MEDS: CIPROFLOXACIN HCL 500 MG TAB PO SCH (22:47)
[2020-01-10] MEDS: ACCU-CHEK COMFORT CURVE STRIP VI SCH ×5 (00:24→16:00)
[2020-01-10] MEDS: InsuLIN REG 1unit/0.01ml Soln (100units/ml) SC SCH ×5 (00:25→16:00)
[2020-01-10] MEDS: metroNIDAZOLE 500 MG TAB PO SCH ×2 (05:19→14:03)
[2020-01-10 05:30] VITALS: BP 137/62
[2020-01-10 05:49] LABS: Basophils # (auto) 0 10 ^3/uL (0-0.2); Eosinophils # (auto) 0 10 ^3/uL (0-0.8); Eosinophils % (auto) 0.8 % (0.0-7.0); Hematocrit 41.2 % (41.0-53.0); Hemoglobin 13.7 g/dL (13.5-17.5); Lymphocytes # (auto) 0.6 10 ^3/uL (0.4-5.4); Lymphocytes % (auto) 13.7 % (10.0-50.0); Mean Corpuscular Hemoglobin 29.2 pg (28.0-32.0); Mean Corpuscular Hgb Conc. 33.3 g/dL (32.0-36.0); Mean Corpuscular Volume 87.7 fL (80.0-100.0); Monocytes # (auto) 0.4 10 ^3/uL (0-1.3); Monocytes % (auto) 8.2 % (0.0-12.0); Neutrophils # (auto) 3.6 10 ^3/uL (1.6-8.6); Neutrophils % (auto) 76.3 % (37.0-80.0); Platelet Count (auto) 133 10^3/uL (140-450); Red Cell Distribution Width 15.4 % (11.8-14.3); White Blood Cell 4.7 10^3/uL (4.4-10.8)
[2020-01-10 06:08] LABS: BUN/Creatinine Ratio 27.6; Calcium 8.3 mg/dL (8.5-10.1); Potassium 4.6 mmol/L (3.5-5.1)
[2020-01-10 08:00] VITALS: BP 107/65
[2020-01-10] MEDS ORDERED: RIVAROXABAN 10 MG TAB PO SCH (10:00)
[2020-01-10] MEDS ORDERED: FUROSEMIDE 40 MG/4 ML VIAL IV SCH (10:00)
[2020-01-10] MEDS: CIPROFLOXACIN HCL 500 MG TAB PO SCH (10:12)
[2020-01-10] MEDS: CLOPIDOGREL BISULFATE 75 MG TAB PO SCH (10:13)
[2020-01-10] MEDS: PANTOPRAZOLE 40 MG TAB PO SCH (10:13)
[2020-01-10] MEDS: INSULIN LANTUS (GLARGINE) 1 /0.01ml (100units/ml) SC SCH (10:19)
[2020-01-10 12:00] VITALS: BP 115/72
[2020-01-10] MEDS ORDERED: MET500T PO (15:05)
[2020-01-10] MEDS ORDERED: CIP500T PO (15:05)
[2020-01-10 17:00] VITALS: BP 117/74
== END 2020-01-10 20:20 | disposition home or self-care (01) | DRG 469 ==
LOC: ER 18:23 → OVERFLOW 18:24 → WEST WING 01-08 22:09
PROVIDERS: ADMIT Hospitalist; ATTEND Internal Medicine Nephrology
DX: N17.0 Acute kidney failure with tubular necrosis (principal); E86.0 Dehydration; F41.9 Anxiety disorder, unspecified; E87.1 Hypo-osmolality and hyponatremia; E66.01 Morbid (severe) obesity due to excess calories; E87.5 Hyperkalemia; I50.9 Heart failure, unspecified; E11.22 Type 2 diabetes mellitus with diabetic chronic kidney disease; E78.5 Hyperlipidemia, unspecified; F17.200 Nicotine dependence, unspecified, uncomplicated; F32.9 Major depressive disorder, single episode, unspecified; I13.2 Hypertensive heart and chronic kidney disease with heart failure and with stage 5 chronic kidney disease, or end stage renal disease; I25.10 Atherosclerotic heart disease of native coronary artery without angina pectoris; I48.91 Unspecified atrial fibrillation; I48.92 Unspecified atrial flutter; N18.6 End stage renal disease; D69.6 Thrombocytopenia, unspecified; Z80.6 Family history of leukemia; Z82.49 Family history of ischemic heart disease and other diseases of the circulatory system; Z98.61 Coronary angioplasty status; I25.2 Old myocardial infarction; Z68.41 Body mass index [BMI] 40.0-44.9, adult; E11.65 Type 2 diabetes mellitus with hyperglycemia; D68.69 Other thrombophilia; J96.21 Acute and chronic respiratory failure with hypoxia
CPT/HCPCS: 36415; 36600; 71045; 80048; 80053; 80061; 80162; 81001; 82306; 82570; 82805; 82962; 83036; 83735; 83880; 83935; 83970; 84100; 84132; 84156; 84300; 84484; 85025; 87493; 93005; 93925; 94640; 96372; G0378; J1815

== ENCOUNTER → 2020-08-01 | Outpatient (CLI) | payer MEDICAID ==
[~2020-08-01] MED LIST changes: -ASPI-378 PO; +CIP500T PO; -CLON0.2D6 PO; -DIG0125T PO; -LOSA-39 PO; +MET500T PO; -METF-371 PO; -SPIR50TA2 PO
== END | disposition home or self-care (01) ==
LOC: Rad HDHVI 10:55
PROVIDERS: ATTEND Internal Medicine
DX: I08.1 Rheumatic disorders of both mitral and tricuspid valves (principal); I11.0 Hypertensive heart disease with heart failure; I50.9 Heart failure, unspecified
CPT/HCPCS: 93306

== ENCOUNTER → 2020-08-05 | Outpatient (CLI) | payer MEDICAID ==
[~2020-08-05] VITALS: Ht 177.8 cm; Wt 133.8 kg
[~2020-08-05] MED LIST changes: +ADENOSINE 112 MG in GIVE UN-DILUTED 0 ML IV ONE; +ADENOSINE 90 MG/30 ML INJ IV ONE
== END | disposition home or self-care (01) ==
LOC: Rad HDHVI 13:17
PROVIDERS: ATTEND Internal Medicine
DX: I25.10 Atherosclerotic heart disease of native coronary artery without angina pectoris (principal); I10 Essential (primary) hypertension; I25.2 Old myocardial infarction; E78.00 Pure hypercholesterolemia, unspecified; E11.9 Type 2 diabetes mellitus without complications; Z95.1 Presence of aortocoronary bypass graft; Z82.49 Family history of ischemic heart disease and other diseases of the circulatory system
CPT/HCPCS: 78452; 93005; 96374; 96375; A9500; J0153

== ENCOUNTER 2021-01-24 20:06 | Inpatient (IN) | payer MEDICAID ==
[~2021-01-24] VITALS: Ht 177.8 cm; Wt 144.1 kg
[~2021-01-24 20:06] MED LIST changes: -ADENOSINE 112 MG in GIVE UN-DILUTED 0 ML IV ONE; -ADENOSINE 90 MG/30 ML INJ IV ONE
[2021-01-25 01:44] LABS: Basophils # (auto) 0 10 ^3/uL (0-0.2); Basophils % (auto) 0.5 % (0.0-2.0); Eosinophils # (auto) 0.1 10 ^3/uL (0-0.8); Eosinophils % (auto) 1.1 % (0.0-7.0); Hematocrit 55.4 % (41.0-53.0); Hemoglobin 18.6 g/dL (13.5-17.5); Lymphocytes # (auto) 1.3 10 ^3/uL (0.4-5.4); Lymphocytes % (auto) 15.4 % (10.0-50.0); Mean Corpuscular Hgb Conc. 33.5 g/dL (32.0-36.0); Mean Corpuscular Volume 89.7 fL (80.0-100.0); Monocytes # (auto) 1.2 10 ^3/uL (0-1.3); Neutrophils # (auto) 5.7 10 ^3/uL (1.6-8.6); Nucleated Red Blood Cells % 0.3 %; Red Blood Cells 6.18 10^6/uL (4.5-5.90); Red Cell Distribution Width 16.7 % (11.8-14.3); White Blood Cell 8.3 10^3/uL (4.4-10.8)
[2021-01-25 01:54] LABS: Albumin 3.4 g/dL (3.4-5.0); INR 1.27 (0.9-1.15); Potassium 4.6 mmol/L (3.5-5.1)
[2021-01-25 01:57] LABS: BUN/Creatinine Ratio 25.8
[2021-01-25 01:59] LABS: Bilirubin, Total 1.2 mg/dL (0.2-1.0); Total Protein 8.1 g/dL (6.4-8.2)
[2021-01-25] MEDS ORDERED: SODIUM CHLORIDE 0.9% 1,000 ML IV ONE ×2 (04:00→10:00)
[2021-01-25] MEDS ORDERED: MORPHINE SULFATE INJECTION 2 MG/ML SYRG IV PRN ×2 (08:45→22:30)
[2021-01-25] MEDS ORDERED: levoFLOXacin 500MG 100 ML IV ONE (08:45)
[2021-01-25] MEDS ORDERED: PROMETHAZINE HCL 25 MG/ML 1ML IV PRN ×2 (08:45→22:30)
[2021-01-25] MEDS ORDERED: DEXTROSE (50%) 50ML SYRG IV PRN ×2 (08:45→22:30)
[2021-01-25] MEDS ORDERED: SODIUM CHLORIDE 0.9% 2,000 ML IV ONE (08:45)
[2021-01-25] MEDS ORDERED: CARVEDILOL 12.5 MG TAB PO SCH ×2 (10:00)
[2021-01-25] MEDS ORDERED: PANTOPRAZOLE 40 MG TAB PO SCH (10:00)
[2021-01-25] MEDS: InsuLIN REG 1unit/0.01ml Soln (100units/ml) SC SCH ×3 (11:26→22:39)
[2021-01-25] MEDS: ACCU-CHEK COMFORT CURVE STRIP VI SCH ×3 (11:26→22:35)
[2021-01-25] MEDS ORDERED: CLINDAMYCIN 600 MG/4 ML VL IM SCH (14:00)
[2021-01-25] MEDS ORDERED: VANCOMYCIN PER PHARMACY 0 MG IV SCH ×2 (14:15→22:30)
[2021-01-25] MEDS ORDERED: VANCOMYCIN 1GM/250ML 250 ML IV ONE (14:24)
[2021-01-25] MEDS ORDERED: LIDOCAINE 1% (LOCAL ANESTH.) PF 5ml SDV ID ONE (15:30)
[2021-01-25 19:50] VITALS: BP 101/51
[2021-01-25 20:00] VITALS: BP 101/51
[2021-01-25] MEDS ORDERED: METF-371 PO (20:14)
[2021-01-25] MEDS ORDERED: SPIR25TA8 PO (20:15)
[2021-01-25] MEDS ORDERED: GLIP10TA9 PO (20:15)
[2021-01-25] MEDS ORDERED: SACU1TAB7 PO (20:15)
[2021-01-25] MEDS ORDERED: HYDR12.56 PO (20:15)
[2021-01-25 22:00] VITALS: BP 89/43
[2021-01-25] MEDS: CARVEDILOL 12.5 MG TAB PO SCH (22:00)
[2021-01-25] MEDS ORDERED: ATORVASTATIN 20 MG TAB PO SCH (22:00)
[2021-01-25] MEDS ORDERED: SODIUM CHLOR 0.9% PF (SALINE LOCK) 10ML VIAL/SYR IV SCH (22:00)
[2021-01-25] MEDS: SODIUM CHLOR 0.9% PF (SALINE LOCK) 10ML VIAL/SYR IV SCH (22:35)
[2021-01-25] MEDS: ATORVASTATIN 20 MG TAB PO SCH (22:35)
[2021-01-25] MEDS ORDERED: SODIUM CHLORIDE 0.9% 500 ML IV ONE (23:00)
[2021-01-26] VITALS (8 sets, daily range): BP systolic 89–112; BP diastolic 49–65
[2021-01-26 05:15] LABS: Basophils # (auto) 0 10 ^3/uL (0-0.2); Basophils % (auto) 0.4 % (0.0-2.0); Eosinophils # (auto) 0.2 10 ^3/uL (0-0.8); Eosinophils % (auto) 2.1 % (0.0-7.0); Hemoglobin 17.4 g/dL (13.5-17.5); Lymphocytes # (auto) 1.6 10 ^3/uL (0.4-5.4); Lymphocytes % (auto) 21.3 % (10.0-50.0); Mean Corpuscular Hemoglobin 30.3 pg (28.0-32.0); Mean Corpuscular Hgb Conc. 34.1 g/dL (32.0-36.0); Monocytes # (auto) 0.8 10 ^3/uL (0-1.3); Monocytes % (auto) 11.5 % (0.0-12.0); Neutrophils # (auto) 4.7 10 ^3/uL (1.6-8.6); Neutrophils % (auto) 64.7 % (37.0-80.0); Nucleated Red Blood Cells % 0.3 %; Red Blood Cells 5.74 10^6/uL (4.5-5.90); Red Cell Distribution Width 16.5 % (11.8-14.3); White Blood Cell 7.3 10^3/uL (4.4-10.8)
[2021-01-26 05:29] LABS: BUN/Creatinine Ratio 36.4; Calcium 8.7 mg/dL (8.5-10.1); Potassium 4.4 mmol/L (3.5-5.1)
[2021-01-26] MEDS: ACCU-CHEK COMFORT CURVE STRIP VI SCH ×4 (06:45→21:55)
[2021-01-26] MEDS: InsuLIN REG 1unit/0.01ml Soln (100units/ml) SC SCH ×4 (06:45→21:56)
[2021-01-26] MEDS: cefTRIAXone 1GM/50ML D5W 50 ML IV SCH (08:23)
[2021-01-26] MEDS ORDERED: cefTRIAXone 1GM/50ML D5W 50 ML IV SCH (09:00)
[2021-01-26] MEDS: CARVEDILOL 12.5 MG TAB PO SCH ×2 (09:35→22:00)
[2021-01-26] MEDS: PANTOPRAZOLE 40 MG TAB PO SCH (09:35)
[2021-01-26] MEDS: SODIUM CHLOR 0.9% PF (SALINE LOCK) 10ML VIAL/SYR IV SCH ×2 (09:35→21:54)
[2021-01-26] MEDS ORDERED: levoFLOXacin 250MG 50 ML IV SCH (10:00)
[2021-01-26] MEDS: VANCOMYCIN 750mg/250ml 250 ML IV SCH (14:50)
[2021-01-26] MEDS: ATORVASTATIN 20 MG TAB PO SCH (21:54)
[2021-01-26] MEDS: ENOXAPARIN SOD 150 MG/1 ML SYRINGE SC SCH (21:55)
[2021-01-27] MEDS: VANCOMYCIN 750mg/250ml 250 ML IV SCH ×2 (02:58→17:01)
[2021-01-27 05:00] VITALS: BP 102/71
[2021-01-27] MEDS: ACCU-CHEK COMFORT CURVE STRIP VI SCH ×4 (06:06→22:00)
[2021-01-27] MEDS: InsuLIN REG 1unit/0.01ml Soln (100units/ml) SC SCH ×4 (06:12→23:00)
[2021-01-27 06:36] LABS: Basophils # (auto) 0 10 ^3/uL (0-0.2); Basophils % (auto) 0.4 % (0.0-2.0); Eosinophils # (auto) 0.2 10 ^3/uL (0-0.8); Eosinophils % (auto) 1.9 % (0.0-7.0); Hematocrit 48.3 % (41.0-53.0); Hemoglobin 16.2 g/dL (13.5-17.5); Lymphocytes # (auto) 1.7 10 ^3/uL (0.4-5.4); Lymphocytes % (auto) 20.7 % (10.0-50.0); Mean Corpuscular Hemoglobin 29.8 pg (28.0-32.0); Mean Corpuscular Hgb Conc. 33.5 g/dL (32.0-36.0); Monocytes # (auto) 0.8 10 ^3/uL (0-1.3); Monocytes % (auto) 9.7 % (0.0-12.0); Neutrophils # (auto) 5.5 10 ^3/uL (1.6-8.6); Neutrophils % (auto) 67.3 % (37.0-80.0); Nucleated Red Blood Cells % 0.1 %; Red Blood Cells 5.42 10^6/uL (4.5-5.90); Red Cell Distribution Width 15.9 % (11.8-14.3); White Blood Cell 8.2 10^3/uL (4.4-10.8)
[2021-01-27] MEDS: cefTRIAXone 1GM/50ML D5W 50 ML IV SCH (08:03)
[2021-01-27 09:00] VITALS: BP 95/60
[2021-01-27] MEDS: CARVEDILOL 12.5 MG TAB PO SCH ×2 (10:55→22:56)
[2021-01-27] MEDS: ENOXAPARIN SOD 150 MG/1 ML SYRINGE SC SCH ×2 (10:55→22:55)
[2021-01-27] MEDS: SODIUM CHLOR 0.9% PF (SALINE LOCK) 10ML VIAL/SYR IV SCH ×2 (10:55→22:00)
[2021-01-27] MEDS: PANTOPRAZOLE 40 MG TAB PO SCH (10:55)
[2021-01-27 13:00] VITALS: BP 106/73
[2021-01-27] MEDS ORDERED: LACTATED RINGER'S 1,000 ML IV ONE (14:45)
[2021-01-27] MEDS ORDERED: FUROSEMIDE 40 MG TAB PO ONE (15:00)
[2021-01-27] MEDS: DAKINS HALF STR 0.25% (NaHypochlorite) 473 ML TOPICAL SOL TOP SCH ×2 (16:09→22:55)
[2021-01-27 17:00] VITALS: BP 144/60
[2021-01-27 22:00] VITALS: BP 124/67
[2021-01-27] MEDS: ATORVASTATIN 20 MG TAB PO SCH (22:55)
[2021-01-28 05:00] VITALS: BP 91/58
[2021-01-28 05:55] LABS: Basophils # (auto) 0 10 ^3/uL (0-0.2); Basophils % (auto) 0.6 % (0.0-2.0); Eosinophils # (auto) 0.1 10 ^3/uL (0-0.8); Eosinophils % (auto) 1.7 % (0.0-7.0); Hematocrit 48.3 % (41.0-53.0); Lymphocytes # (auto) 1.8 10 ^3/uL (0.4-5.4); Lymphocytes % (auto) 22.3 % (10.0-50.0); Mean Corpuscular Hemoglobin 29.6 pg (28.0-32.0); Mean Corpuscular Volume 89.5 fL (80.0-100.0); Monocytes # (auto) 0.8 10 ^3/uL (0-1.3); Monocytes % (auto) 9.9 % (0.0-12.0); Neutrophils # (auto) 5.3 10 ^3/uL (1.6-8.6); Neutrophils % (auto) 65.5 % (37.0-80.0); Nucleated Red Blood Cells % 0.2 %; Red Blood Cells 5.39 10^6/uL (4.5-5.90); Red Cell Distribution Width 16.2 % (11.8-14.3); White Blood Cell 8.2 10^3/uL (4.4-10.8)
[2021-01-28 06:22] LABS: Potassium 4.8 mmol/L (3.5-5.1)
[2021-01-28 06:27] LABS: Calcium 8.7 mg/dL (8.5-10.1); Magnesium 2.6 mg/dL (1.6-2.6)
[2021-01-28] MEDS: VANCOMYCIN 750mg/250ml 250 ML IV SCH ×2 (07:15→20:20)
[2021-01-28] MEDS: ACCU-CHEK COMFORT CURVE STRIP VI SCH ×4 (07:15→22:17)
[2021-01-28] MEDS: InsuLIN REG 1unit/0.01ml Soln (100units/ml) SC SCH ×4 (07:27→22:17)
[2021-01-28 09:00] VITALS: BP 123/66
[2021-01-28] MEDS: cefTRIAXone 1GM/50ML D5W 50 ML IV SCH (09:44)
[2021-01-28] MEDS: ENOXAPARIN SOD 150 MG/1 ML SYRINGE SC SCH ×2 (09:45→22:25)
[2021-01-28] MEDS: CARVEDILOL 12.5 MG TAB PO SCH ×2 (09:46→22:25)
[2021-01-28] MEDS: SODIUM CHLOR 0.9% PF (SALINE LOCK) 10ML VIAL/SYR IV SCH ×2 (09:47→22:24)
[2021-01-28] MEDS: PANTOPRAZOLE 40 MG TAB PO SCH (09:47)
[2021-01-28] MEDS: FUROSEMIDE 40 MG TAB PO SCH (09:47)
[2021-01-28] MEDS: DAKINS HALF STR 0.25% (NaHypochlorite) 473 ML TOPICAL SOL TOP SCH ×2 (09:48→22:00)
[2021-01-28 13:00] VITALS: BP 111/67
[2021-01-28 17:00] VITALS: BP 99/38
[2021-01-28 21:34] VITALS: BP 104/58
[2021-01-28] MEDS: ATORVASTATIN 20 MG TAB PO SCH (22:25)
[2021-01-29 05:18] VITALS: BP 130/73
[2021-01-29 05:35] LABS: Basophils # (auto) 0.1 10 ^3/uL (0-0.2); Basophils % (auto) 0.6 % (0.0-2.0); Eosinophils # (auto) 0.2 10 ^3/uL (0-0.8); Eosinophils % (auto) 1.7 % (0.0-7.0); Hematocrit 49.7 % (41.0-53.0); Hemoglobin 16.5 g/dL (13.5-17.5); Lymphocytes # (auto) 1.7 10 ^3/uL (0.4-5.4); Lymphocytes % (auto) 17.4 % (10.0-50.0); Mean Corpuscular Hemoglobin 29.6 pg (28.0-32.0); Mean Corpuscular Hgb Conc. 33.1 g/dL (32.0-36.0); Mean Corpuscular Volume 89.3 fL (80.0-100.0); Monocytes # (auto) 0.8 10 ^3/uL (0-1.3); Monocytes % (auto) 7.8 % (0.0-12.0); Neutrophils # (auto) 7.1 10 ^3/uL (1.6-8.6); Neutrophils % (auto) 72.5 % (37.0-80.0); Red Blood Cells 5.57 10^6/uL (4.5-5.90); Red Cell Distribution Width 15.9 % (11.8-14.3); White Blood Cell 9.8 10^3/uL (4.4-10.8)
[2021-01-29 05:45] LABS: Calcium 8.8 mg/dL (8.5-10.1); Potassium 4.9 mmol/L (3.5-5.1)
[2021-01-29 05:49] LABS: BUN/Creatinine Ratio 25.9
[2021-01-29] MEDS: ACCU-CHEK COMFORT CURVE STRIP VI SCH ×4 (06:31→22:03)
[2021-01-29] MEDS: InsuLIN REG 1unit/0.01ml Soln (100units/ml) SC SCH ×4 (06:31→22:03)
[2021-01-29 09:00] VITALS: BP 116/70
[2021-01-29] MEDS: ACETAMINOPHEN 325 MG TAB PO PRN ×2 (09:04→18:41)
[2021-01-29] MEDS: VANCOMYCIN 750mg/250ml 250 ML IV SCH ×2 (09:04→20:41)
[2021-01-29] MEDS: SODIUM CHLOR 0.9% PF (SALINE LOCK) 10ML VIAL/SYR IV SCH ×2 (09:06→22:16)
[2021-01-29] MEDS: PANTOPRAZOLE 40 MG TAB PO SCH (09:06)
[2021-01-29] MEDS: ENOXAPARIN SOD 150 MG/1 ML SYRINGE SC SCH (09:06)
[2021-01-29] MEDS ORDERED: BUPIVACAINE 0.5% P/F INJ 10 ML VIAL ONE (09:32)
[2021-01-29] MEDS ORDERED: LIDOCAINE 1% HCL (LOCAL ANESTH.) INJ 20ML MDV ONE (09:32)
[2021-01-29] MEDS: CARVEDILOL 12.5 MG TAB PO SCH ×2 (09:39→21:39)
[2021-01-29] MEDS: DAKINS HALF STR 0.25% (NaHypochlorite) 473 ML TOPICAL SOL TOP SCH ×2 (09:40→22:00)
[2021-01-29] MEDS: FUROSEMIDE 40 MG TAB PO SCH (09:40)
[2021-01-29] MEDS ORDERED: DAKINS HALF STR 0.25% (NaHypochlorite) 473 ML TOPICAL SOL TOP ONE (10:00)
[2021-01-29] MEDS: cefTRIAXone 1GM/50ML D5W 50 ML IV SCH (10:30)
[2021-01-29] MEDS ORDERED: MIDAZOLAM HCL 2MG/2ML 2ml VIAL (1mg/ml) ONE (12:44)
[2021-01-29] MEDS ORDERED: fentaNYL CITRATE 100 MCG/2 ML VL ONE (12:44)
[2021-01-29] MEDS ORDERED: PROPOFOL 10 MG/ML 20 ML IV ONE (12:48)
[2021-01-29] MEDS ORDERED: LIDOCAINE 1% (LOCAL ANESTH.) PF 5ml SDV ONE (12:48)
[2021-01-29] MEDS ORDERED: ONDANSETRON HCL 4 MG/2 ML VIAL ONE (12:48)
[2021-01-29 17:00] VITALS: BP 120/74
[2021-01-29] MEDS ORDERED: VAN1I IV (17:14)
[2021-01-29] MEDS ORDERED: CAR125T PO (17:14)
[2021-01-29] MEDS ORDERED: HYDR-4902 PO (17:14)
[2021-01-29] MEDS ORDERED: CEFT1INJ17 IV (17:14)
[2021-01-29 22:00] VITALS: BP 88/52
[2021-01-29] MEDS: ATORVASTATIN 20 MG TAB PO SCH (22:16)
[2021-01-30] MEDS: ACETAMINOPHEN 325 MG TAB PO PRN ×2 (03:15→09:28)
[2021-01-30 05:00] VITALS: BP 121/78
[2021-01-30] MEDS: ACCU-CHEK COMFORT CURVE STRIP VI SCH ×3 (06:38→17:43)
[2021-01-30] MEDS: InsuLIN REG 1unit/0.01ml Soln (100units/ml) SC SCH ×3 (06:38→17:44)
[2021-01-30 07:15] LABS: Basophils # (auto) 0 10 ^3/uL (0-0.2); Basophils % (auto) 0.3 % (0.0-2.0); Eosinophils # (auto) 0.1 10 ^3/uL (0-0.8); Eosinophils % (auto) 1.1 % (0.0-7.0); Hematocrit 49.7 % (41.0-53.0); Hemoglobin 16.4 g/dL (13.5-17.5); Lymphocytes % (auto) 10.7 % (10.0-50.0); Mean Corpuscular Hemoglobin 29.8 pg (28.0-32.0); Mean Corpuscular Hgb Conc. 32.9 g/dL (32.0-36.0); Mean Corpuscular Volume 90.5 fL (80.0-100.0); Monocytes # (auto) 0.8 10 ^3/uL (0-1.3); Neutrophils # (auto) 7.5 10 ^3/uL (1.6-8.6); Neutrophils % (auto) 79.9 % (37.0-80.0); Nucleated Red Blood Cells % 0.1 %; Red Blood Cells 5.49 10^6/uL (4.5-5.90); Red Cell Distribution Width 16.3 % (11.8-14.3); White Blood Cell 9.4 10^3/uL (4.4-10.8)
[2021-01-30 07:28] LABS: BUN/Creatinine Ratio 26.7; Calcium 8.7 mg/dL (8.5-10.1); Potassium 4.6 mmol/L (3.5-5.1)
[2021-01-30] MEDS: VANCOMYCIN 750mg/250ml 250 ML IV SCH (08:14)
[2021-01-30 09:00] VITALS: BP 136/79
[2021-01-30] MEDS: cefTRIAXone 1GM/50ML D5W 50 ML IV SCH (09:27)
[2021-01-30] MEDS: SODIUM CHLOR 0.9% PF (SALINE LOCK) 10ML VIAL/SYR IV SCH (09:27)
[2021-01-30] MEDS: CARVEDILOL 12.5 MG TAB PO SCH (09:27)
[2021-01-30] MEDS: PANTOPRAZOLE 40 MG TAB PO SCH (09:28)
[2021-01-30] MEDS: FUROSEMIDE 40 MG TAB PO SCH (09:28)
[2021-01-30] MEDS: DAKINS HALF STR 0.25% (NaHypochlorite) 473 ML TOPICAL SOL TOP SCH (10:55)
[2021-01-30 12:53] VITALS: BP 119/65
[2021-01-30 16:37] VITALS: BP 119/75
[2021-01-30 19:25] VITALS: BP 119/75
[2021-01-30] MEDS ORDERED: VANCOMYCIN 1GM/250ML 250 ML IV SCH (20:00)
== END 2021-01-30 20:00 | disposition home health service (06) | DRG 305 ==
LOC: ER 20:06 → TELE 01-25 08:46 → ER 01-25 18:05 → TELE-WESTW 01-25 18:12
PROVIDERS: ADMIT Internal Medicine; ATTEND Internal Medicine
PROC: 02HV33Z Insertion of Infusion Device into Superior Vena Cava, Percutaneous Approach (ICD-10-PCS; 2021-01-25)
PROC: B548ZZA Ultrasonography of Superior Vena Cava, Guidance (ICD-10-PCS; 2021-01-25)
PROC: 0Y6M0Z6 Detachment at Right Foot, Complete 3rd Ray, Open Approach (ICD-10-PCS; 2021-01-29)
PROC: 0Y6M0Z5 Detachment at Right Foot, Complete 2nd Ray, Open Approach (ICD-10-PCS; principal; 2021-01-29 12:50)
DX: E11.69 Type 2 diabetes mellitus with other specified complication (principal); N17.0 Acute kidney failure with tubular necrosis; I13.2 Hypertensive heart and chronic kidney disease with heart failure and with stage 5 chronic kidney disease, or end stage renal disease; I42.9 Cardiomyopathy, unspecified; I48.92 Unspecified atrial flutter; M86.8X7 Other osteomyelitis, ankle and foot; E11.22 Type 2 diabetes mellitus with diabetic chronic kidney disease; L03.116 Cellulitis of left lower limb; E11.621 Type 2 diabetes mellitus with foot ulcer; I25.10 Atherosclerotic heart disease of native coronary artery without angina pectoris; E66.01 Morbid (severe) obesity due to excess calories; I50.22 Chronic systolic (congestive) heart failure; E03.9 Hypothyroidism, unspecified; Z20.822 Contact with and (suspected) exposure to COVID-19; E78.5 Hyperlipidemia, unspecified; I48.0 Paroxysmal atrial fibrillation; E11.51 Type 2 diabetes mellitus with diabetic peripheral angiopathy without gangrene; Z77.22 Contact with and (suspected) exposure to environmental tobacco smoke (acute) (chronic); N18.6 End stage renal disease; Z80.8 Family history of malignant neoplasm of other organs or systems; Z68.41 Body mass index [BMI] 40.0-44.9, adult; Z80.6 Family history of leukemia; Z82.49 Family history of ischemic heart disease and other diseases of the circulatory system; Z98.61 Coronary angioplasty status; E11.65 Type 2 diabetes mellitus with hyperglycemia
CPT/HCPCS: 36415; 36569; 71045; 73590; 73630; 73718; 80048; 80053; 80202; 82565; 82962; 83605; 83735; 83880; 84484; 85025; 85610; 85652; 86141; 87040; 87070; 87075; 87205; 87426; 93005; 93925; 93971; 96365; 96367; 96372; 97110; 97163; 97530; G0378; J0696; J1815; J1956; J2001; J2250; J2405; J2704; J3490

== ENCOUNTER → 2021-07-23 | Outpatient (CLI) | payer MEDICAID ==
[~2021-07-23] MED LIST changes: +CAR125T PO; -CARV25TA55 PO; +CEFT1INJ17 IV; -CIP500T PO; +HYDR-4902 PO; -MET500T PO; +METF-371 PO; +SPIR25TA8 PO; +VAN1I IV
== END | disposition home or self-care (01) ==
LOC: Rad HDHVI 09:15
PROVIDERS: ATTEND Internal Medicine
DX: I08.0 Rheumatic disorders of both mitral and aortic valves (principal); I50.9 Heart failure, unspecified
CPT/HCPCS: 93306

== ENCOUNTER → 2021-07-29 | Outpatient (CLI) | payer MEDICAID ==
[~2021-07-29] VITALS: Ht 177.8 cm; Wt 147.4 kg
[~2021-07-29] MED LIST changes: +ADENOSINE 90 MG/30 ML INJ IV ONE; +ADENOSINE IV ONE; +GIVE UN DILUTED IV ONE
== END | disposition home or self-care (01) ==
LOC: Rad HDHVI 09:23
PROVIDERS: ATTEND Internal Medicine
DX: I25.2 Old myocardial infarction (principal); I25.10 Atherosclerotic heart disease of native coronary artery without angina pectoris; E78.5 Hyperlipidemia, unspecified; E11.9 Type 2 diabetes mellitus without complications; Z82.49 Family history of ischemic heart disease and other diseases of the circulatory system; Z95.1 Presence of aortocoronary bypass graft
CPT/HCPCS: 78452; 93005; 96374; 96375; A9500; J0153

== ENCOUNTER → 2022-04-22 | Outpatient (CLI) | payer MEDICAID ==
[~2022-04-22] MED LIST changes: -ADENOSINE 90 MG/30 ML INJ IV ONE; -ADENOSINE IV ONE; -GIVE UN DILUTED IV ONE
== END | disposition home or self-care (01) ==
LOC: Rad HDHVI 12:25
PROVIDERS: ATTEND Internal Medicine
DX: I08.2 Rheumatic disorders of both aortic and tricuspid valves (principal); I11.9 Hypertensive heart disease without heart failure; E78.5 Hyperlipidemia, unspecified
CPT/HCPCS: 93306

== ENCOUNTER → 2022-11-02 | Outpatient (CLI) | payer MEDICAID ==
[~2022-11-02] MED LIST changes: +ATOR20TA PO; +DULA0.5I SC; +INSU1INJ19 SC; +METR500T14 PO; +NAP500T PO; +SACU1TAB PO
[2022-11-02 13:10] VITALS: BP 124/69
[2022-11-02 13:35] VITALS: BP 118/63
== END | disposition home or self-care (01) ==
LOC: Rad HDHVI 13:01
PROVIDERS: ATTEND Internal Medicine Cardiovascular Disease
DX: Z01.818 Encounter for other preprocedural examination (principal); I49.3 Ventricular premature depolarization; R94.31 Abnormal electrocardiogram [ECG] [EKG]; I48.91 Unspecified atrial fibrillation; I11.0 Hypertensive heart disease with heart failure; I50.9 Heart failure, unspecified; I25.10 Atherosclerotic heart disease of native coronary artery without angina pectoris
CPT/HCPCS: 71046; 93005; G0463

== ENCOUNTER 2022-11-05 07:53 | Day surgery (SDC) | payer MEDICAID ==
[2022-11-02 14:23] LABS: Basophils # (auto) 0.1 10 ^3/uL (0-0.2); Basophils % (auto) 0.7 % (0.0-2.0); Eosinophils # (auto) 0.1 10 ^3/uL (0-0.8); Eosinophils % (auto) 1.5 % (0.0-7.0); Hematocrit 55.3 % (41.0-53.0); Hemoglobin 18.4 g/dL (13.5-17.5); Lymphocytes # (auto) 1.1 10 ^3/uL (0.4-5.4); Lymphocytes % (auto) 15.7 % (10.0-50.0); Mean Corpuscular Hgb Conc. 33.2 g/dL (32.0-36.0); Mean Corpuscular Volume 90.3 fL (80.0-100.0); Monocytes # (auto) 0.6 10 ^3/uL (0-1.3); Monocytes % (auto) 8.5 % (0.0-12.0); Neutrophils # (auto) 5.3 10 ^3/uL (1.6-8.6); Neutrophils % (auto) 73.6 % (37.0-80.0); Nucleated Red Blood Cells % 0.2 %; Red Blood Cells 6.13 10^6/uL (4.5-5.90); Red Cell Distribution Width 16.5 % (11.8-14.3); White Blood Cell 7.1 10^3/uL (4.4-10.8)
[2022-11-02 14:42] LABS: INR 1.33 (0.9-1.15); Partial Thromboplastin Time 41.4 sec (24.6-33.4)
[2022-11-02 14:54] LABS: BUN/Creatinine Ratio 21.2 (10.0-20.0); Calcium 8.6 mg/dL (8.5-10.1); Potassium 4.1 mmol/L (3.5-5.1)
[~2022-11-05] VITALS: Ht 177.8 cm; Wt 140.2 kg
[2022-11-05] VITALS (11 sets, daily range): BP systolic 105–126; BP diastolic 58–82
[~2022-11-05 07:53] MED LIST changes: -ATOR20TA50 PO; -CEFT1INJ17 IV; -CLOP75TA28 PO; -INSLANTI SC; -METF-371 PO; +METR-344 PO; -METR500T14 PO; -PANT40TA2 PO; -SPIR25TA8 PO; -VAN1I IV
[2022-11-05] MEDS ORDERED: ANGIOMAX 250 MG VIAL IV ONE (09:53)
[2022-11-05] MEDS ORDERED: fentaNYL CITRATE 100 MCG/2 ML VL ONE (09:53)
[2022-11-05] MEDS ORDERED: SODIUM CHL 0.9% 50 ML ONE (09:54)
[2022-11-05] MEDS ORDERED: MIDAZOLAM HCL 2MG/2ML 2ml VIAL (1mg/ml) ONE (09:54)
[2022-11-05] MEDS ORDERED: IODIXANOL 320MG/ML 100ML BTL IV ONE (09:56)
[2022-11-05] MEDS ORDERED: LIDOCAINE 2%HCL (LOCAL ANESTH.) INJ 20ML MDV ONE (09:56)
== END 2022-11-05 13:15 | disposition home or self-care (01) ==
LOC: CATH 07:53
PROVIDERS: ATTEND Internal Medicine Cardiovascular Disease
DX: I25.10 Atherosclerotic heart disease of native coronary artery without angina pectoris (principal); R94.39 Abnormal result of other cardiovascular function study; I25.2 Old myocardial infarction; I25.5 Ischemic cardiomyopathy; E78.5 Hyperlipidemia, unspecified; E66.9 Obesity, unspecified; E11.40 Type 2 diabetes mellitus with diabetic neuropathy, unspecified; E11.21 Type 2 diabetes mellitus with diabetic nephropathy; Z79.4 Long term (current) use of insulin; Z79.01 Long term (current) use of anticoagulants; Z79.899 Other long term (current) drug therapy; I11.0 Hypertensive heart disease with heart failure; I50.9 Heart failure, unspecified
CPT/HCPCS: 36415; 80048; 85025; 85610; 85730; 92920; 93458; C1769; C1887; C1894; J0583; J1644; J2250; J3010; Q9967; 99152; 99153

== ENCOUNTER 2022-12-12 22:06 | Inpatient (IN) | payer MEDICAID ==
[~2022-12-12] VITALS: Ht 177.8 cm; Wt 139.0 kg
[2022-12-13] MEDS ORDERED: PIPERACILLIN-TAZOB 3.375GM 100 ML IV ONE (02:30)
[2022-12-13 02:40] LABS: Basophils # (auto) 0.1 10 ^3/uL (0-0.2); Basophils % (auto) 0.5 % (0.0-2.0); Eosinophils # (auto) 0.2 10 ^3/uL (0-0.8); Lymphocytes # (auto) 1.6 10 ^3/uL (0.4-5.4)
[2022-12-13 02:42] LABS: Eosinophils % (auto) 2.4 % (0.0-7.0); Hemoglobin 18.4 g/dL (13.5-17.5); Lymphocytes % (auto) 15.7 % (10.0-50.0); Mean Corpuscular Hgb Conc. 31.7 g/dL (32.0-36.0); Mean Corpuscular Volume 91.6 fL (80.0-100.0); Monocytes # (auto) 0.9 10 ^3/uL (0-1.3); Monocytes % (auto) 8.5 % (0.0-12.0); Neutrophils # (auto) 7.4 10 ^3/uL (1.6-8.6); Neutrophils % (auto) 72.9 % (37.0-80.0); Nucleated Red Blood Cells % 0.3 %; Red Blood Cells 6.35 10^6/uL (4.5-5.90); Red Cell Distribution Width 16.7 % (11.8-14.3); White Blood Cell 10.2 10^3/uL (4.4-10.8)
[2022-12-13 02:47] LABS: Hematocrit 58.2 % (41.0-53.0)
[2022-12-13 02:52] LABS: Albumin 3.4 g/dL (3.4-5.0); Calcium 8.4 mg/dL (8.5-10.1); Potassium 4.1 mmol/L (3.5-5.1)
[2022-12-13 02:55] LABS: Bilirubin, Total 0.9 mg/dL (0.2-1.0); Total Protein 7.2 g/dL (6.4-8.2)
[2022-12-13] MEDS ORDERED: VANCOMYCIN 1GM/250ML 250 ML IV ONE (03:30)
[2022-12-13] MEDS ORDERED: DEXTROSE (50%) 50ML SYRG IV PRN (06:00)
[2022-12-13] MEDS ORDERED: DOCUSATE SOD 100 MG CAP PO PRN (06:00)
[2022-12-13] MEDS ORDERED: HYDROcodone-ACET 5/325MG TAB PO PRN (06:00)
[2022-12-13] MEDS ORDERED: VANCOMYCIN PER PHARMACY 0 MG IV SCH (06:00)
[2022-12-13] MEDS ORDERED: NITROGLYCERIN 0.4 MG SL TAB SL PRN (06:00)
[2022-12-13] MEDS ORDERED: MORPHINE SULFATE INJ 2 MG/ml SYRG IV PRN ×2 (06:00)
[2022-12-13] MEDS ORDERED: ACETAMINOPHEN 325 MG TAB PO PRN (06:00)
[2022-12-13] MEDS ORDERED: ONDANSETRON HCL 4 MG/2 ML VIAL IV PRN (06:00)
[2022-12-13] MEDS: ACCU-CHEK COMFORT CURVE STRIP VI SCH ×4 (07:00→22:21)
[2022-12-13] MEDS: SODIUM CHLOR 0.9% PF (SALINE LOCK) 10ML VIAL/SYR IV SCH ×3 (07:45→23:23)
[2022-12-13] MEDS: InsuLIN REG 1unit/0.01ml Soln (100units/ml) SC SCH ×4 (08:28→23:13)
[2022-12-13] MEDS ORDERED: HEPARIN SODIUM (PORCINE) 5000 UNITS/ML 1ML VIAL ONE (09:50)
[2022-12-13] MEDS: HEPARIN SODIUM (PORCINE) 5000 UNITS/ML 1ML VIAL SC SCH ×2 (09:55→23:17)
[2022-12-13] MEDS ORDERED: PIPERACILLIN-TAZOB 3.375GM 100 ML IV SCH (10:00)
[2022-12-13] MEDS ORDERED: CEFEPIME 2GM/50ML NS 50 ML IV ONE (12:45)
[2022-12-13] MEDS ORDERED: VANCOMYCIN 1GM/250ML 250 ML IV SCH (16:00)
[2022-12-13] MEDS: VANCOMYCIN 1GM/250ML 250 ML IV SCH (16:48)
[2022-12-13] MEDS: CEFEPIME 2GM/50ML NS 50 ML IV SCH (23:34)
[2022-12-14 04:55] LABS: White Blood Cell 8.1 10^3/uL (4.4-10.8)
[2022-12-14 04:56] LABS: Basophils # (auto) 0 10 ^3/uL (0-0.2); Basophils % (auto) 0.4 % (0.0-2.0); Eosinophils # (auto) 0.2 10 ^3/uL (0-0.8); Eosinophils % (auto) 2.7 % (0.0-7.0); Hematocrit 55.3 % (41.0-53.0); Lymphocytes # (auto) 1.4 10 ^3/uL (0.4-5.4); Mean Corpuscular Hemoglobin 29.4 pg (28.0-32.0); Mean Corpuscular Hgb Conc. 32.5 g/dL (32.0-36.0); Mean Corpuscular Volume 90.6 fL (80.0-100.0); Monocytes # (auto) 0.7 10 ^3/uL (0-1.3); Monocytes % (auto) 8.3 % (0.0-12.0); Neutrophils # (auto) 5.8 10 ^3/uL (1.6-8.6); Neutrophils % (auto) 71.6 % (37.0-80.0); Nucleated Red Blood Cells % 0.4 %; Red Blood Cells 6.11 10^6/uL (4.5-5.90); Red Cell Distribution Width 16.4 % (11.8-14.3)
[2022-12-14 05:03] LABS: Albumin 2.9 g/dL (3.4-5.0); Calcium 8.4 mg/dL (8.5-10.1); Potassium 4.2 mmol/L (3.5-5.1)
[2022-12-14 05:07] LABS: BUN/Creatinine Ratio 22.5 (10.0-20.0); Bilirubin, Total 1.1 mg/dL (0.2-1.0); Total Protein 6.4 g/dL (6.4-8.2)
[2022-12-14] MEDS: SODIUM CHLOR 0.9% PF (SALINE LOCK) 10ML VIAL/SYR IV SCH ×3 (05:30→21:40)
[2022-12-14] MEDS: VANCOMYCIN 1GM/250ML 250 ML IV SCH ×2 (05:31→17:20)
[2022-12-14] MEDS: ACCU-CHEK COMFORT CURVE STRIP VI SCH ×4 (06:56→21:47)
[2022-12-14] MEDS: InsuLIN REG 1unit/0.01ml Soln (100units/ml) SC SCH ×4 (06:58→21:47)
[2022-12-14 09:12] VITALS: BP 136/83
[2022-12-14 09:58] VITALS: BP 136/83
[2022-12-14] MEDS: HEPARIN SODIUM (PORCINE) 5000 UNITS/ML 1ML VIAL SC SCH ×2 (10:00→21:47)
[2022-12-14] MEDS ORDERED: SPIR25TA8 PO (10:11)
[2022-12-14] MEDS: CEFEPIME 2GM/50ML NS 50 ML IV SCH ×2 (10:13→21:40)
[2022-12-14 13:00] VITALS: BP 116/66
[2022-12-14 17:00] VITALS: BP 117/67
[2022-12-14 20:00] VITALS: BP 116/71
[2022-12-14] MEDS: SACUBITRIL-VALSARTAN 24mg/26mg TAB PO SCH (21:40)
[2022-12-14] MEDS: CARVEDILOL 12.5 MG TAB PO SCH (21:40)
[2022-12-14] MEDS: FUROSEMIDE 40 MG TAB PO SCH (21:41)
[2022-12-14 22:00] VITALS: BP 116/71
[2022-12-15 05:00] VITALS: BP 103/53
[2022-12-15] MEDS: VANCOMYCIN 1GM/250ML 250 ML IV SCH (05:20)
[2022-12-15] MEDS: SODIUM CHLOR 0.9% PF (SALINE LOCK) 10ML VIAL/SYR IV SCH (05:24)
[2022-12-15] MEDS: ACCU-CHEK COMFORT CURVE STRIP VI SCH ×2 (06:20→11:35)
[2022-12-15] MEDS: InsuLIN REG 1unit/0.01ml Soln (100units/ml) SC SCH ×2 (06:41→11:35)
[2022-12-15 08:15] VITALS: BP 107/60
[2022-12-15 09:00] VITALS: BP 107/60
[2022-12-15] MEDS: SACUBITRIL-VALSARTAN 24mg/26mg TAB PO SCH (09:39)
[2022-12-15] MEDS: CARVEDILOL 12.5 MG TAB PO SCH (09:40)
[2022-12-15] MEDS: FUROSEMIDE 40 MG TAB PO SCH (09:40)
[2022-12-15] MEDS: HEPARIN SODIUM (PORCINE) 5000 UNITS/ML 1ML VIAL SC SCH (09:42)
[2022-12-15] MEDS ORDERED: Dapagliflozin Propanediol (Farxiga) 10 MG TABLET PO SCH (10:00)
[2022-12-15] MEDS ORDERED: ATORVASTATIN 20 MG TAB PO SCH (10:00)
[2022-12-15] MEDS ORDERED: SPIRONOLACTONE 25 MG TAB PO SCH (10:00)
[2022-12-15] MEDS ORDERED: RIVAROXABAN 20 MG TAB PO SCH (10:00)
[2022-12-15] MEDS: CEFEPIME 2GM/50ML NS 50 ML IV SCH (10:16)
[2022-12-15] MEDS ORDERED: AUG875T PO (11:46)
[2022-12-15 13:00] VITALS: BP 114/66
[2022-12-15 14:23] VITALS: BP 107/60
== END 2022-12-15 14:55 | disposition home or self-care (01) | DRG 721 ==
LOC: ER 22:06 → OVERFLOW 12-13 06:00 → WEST WING 12-14 09:11
PROVIDERS: ADMIT Nurse Practitioner Family; ATTEND Internal Medicine Geriatric Medicine
DX: T81.49XA Infection following a procedure, other surgical site, initial encounter (principal); E44.0 Moderate protein-calorie malnutrition; N17.9 Acute kidney failure, unspecified; I13.2 Hypertensive heart and chronic kidney disease with heart failure and with stage 5 chronic kidney disease, or end stage renal disease; N18.6 End stage renal disease; E11.22 Type 2 diabetes mellitus with diabetic chronic kidney disease; L03.031 Cellulitis of right toe; E78.5 Hyperlipidemia, unspecified; E66.01 Morbid (severe) obesity due to excess calories; I50.9 Heart failure, unspecified; I25.10 Atherosclerotic heart disease of native coronary artery without angina pectoris; Y83.8 Other surgical procedures as the cause of abnormal reaction of the patient, or of later complication, without mention of misadventure at the time of the procedure; Z95.5 Presence of coronary angioplasty implant and graft; Z82.49 Family history of ischemic heart disease and other diseases of the circulatory system; Y92.89 Other specified places as the place of occurrence of the external cause; Z68.41 Body mass index [BMI] 40.0-44.9, adult; Z89.421 Acquired absence of other right toe(s)
CPT/HCPCS: 36415; 73630; 73718; 80053; 80202; 82962; 83036; 85025; 96365; 96367; G0378; J0692; J1815; J2543

== ENCOUNTER → 2023-05-10 | Outpatient (CLI) | payer MEDICAID ==
[~2023-05-10] MED LIST changes: +ASCO500T11 PO; +AUG875T PO; +CINN500C7 PO; -METR-344 PO; -NAP500T PO; +SPIR25TA8 PO; +VITA100072 PO
[2023-05-10 12:20] VITALS: BP 119/79; PULSE 67; RESP 20; O2SAT 94
[2023-05-10 12:44] VITALS: BP 98/74; PULSE 66; RESP 22; O2SAT 94
== END | disposition home or self-care (01) ==
LOC: CHF HDHVI 12:08
PROVIDERS: ATTEND Internal Medicine Cardiovascular Disease
DX: Z01.818 Encounter for other preprocedural examination (principal); I45.10 Unspecified right bundle-branch block; I44.30 Unspecified atrioventricular block; I49.3 Ventricular premature depolarization; R94.31 Abnormal electrocardiogram [ECG] [EKG]; I48.92 Unspecified atrial flutter; I50.23 Acute on chronic systolic (congestive) heart failure; R06.02 Shortness of breath; I25.5 Ischemic cardiomyopathy
CPT/HCPCS: 93005; G0463

== ENCOUNTER 2023-05-13 07:25 | Day surgery (SDC) | payer MEDICAID ==
[2023-05-10 13:41] LABS: Basophils # (auto) 0 10 ^3/uL (0-0.2); Eosinophils # (auto) 0.1 10 ^3/uL (0-0.8); Lymphocytes # (auto) 1.6 10 ^3/uL (0.4-5.4); Monocytes # (auto) 0.7 10 ^3/uL (0-1.3); Red Blood Cells 6.49 10^6/uL (4.5-5.90)
[2023-05-10 13:43] LABS: Basophils % (auto) 0.6 % (0.0-2.0); Eosinophils % (auto) 0.8 % (0.0-7.0); Hemoglobin 19.2 g/dL (13.5-17.5); Lymphocytes % (auto) 18.2 % (10.0-50.0); Mean Corpuscular Hemoglobin 29.6 pg (28.0-32.0); Mean Corpuscular Hgb Conc. 32.2 g/dL (32.0-36.0); Mean Corpuscular Volume 91.9 fL (80.0-100.0); Monocytes % (auto) 8.2 % (0.0-12.0); Neutrophils # (auto) 6.2 10 ^3/uL (1.6-8.6); Neutrophils % (auto) 72.2 % (37.0-80.0); Nucleated Red Blood Cells % 0.7 %; Red Cell Distribution Width 16.3 % (11.8-14.3); White Blood Cell 8.6 10^3/uL (4.4-10.8)
[2023-05-10 14:08] LABS: INR 1.19 (0.9-1.15); Partial Thromboplastin Time 31.4 SEC (24.5-34.5); Prothrombin Time 12.4 sec (9.3-11.8)
[2023-05-10 14:19] LABS: Hematocrit 59.7 % (41.0-53.0)
[2023-05-10 17:00] LABS: Alanine Aminotransferase 12 U/L (7-40); Alkaline Phosphatase 95 U/L (46-116); Anion Gap 11 (5-15); Aspartate Aminotransferase 20 U/L (13-40); BUN/Creatinine Ratio 19.3 (10.0-20.0); Blood Urea Nitrogen 31 mg/dL (9-23); Calcium 9.7 mg/dL (8.5-10.1); Carbon Dioxide 23 mmol/L (20-30); Chloride 108 mmol/L (98-107); Glucose 75 mg/dL (74-106); Potassium 4.6 mmol/L (3.5-5.1); Sodium 142 mmol/L (136-145)
[2023-05-10 17:01] LABS: Albumin 4.1 g/dL (3.2-4.8); Bilirubin, Total 1.3 mg/dL (0.2-1.0); Total Protein 6.9 g/dL (5.7-8.2)
[~2023-05-13] VITALS: Ht 177.8 cm; Wt 139.3 kg
[2023-05-13] VITALS (8 sets, daily range): BP systolic 97–105; BP diastolic 58–82; PULSE 81–100; RESP 12–18; O2SAT 90–95
[2023-05-13] MEDS ORDERED: VANCOMYCIN 1GM/250ML 250 ML IV ONE ×2 (09:30→09:33)
[2023-05-13] MEDS ORDERED: VANCOMYCIN HCL 1000 MG VL ONE (09:32)
[2023-05-13] MEDS ORDERED: MIDAZOLAM HCL 2MG/2ML 2ml VIAL (1mg/ml) ONE (09:33)
[2023-05-13] MEDS ORDERED: LIDOCAINE 2%HCL (LOCAL ANESTH.) INJ 20ML MDV ONE ×2 (09:33→10:40)
[2023-05-13] MEDS ORDERED: fentaNYL CITRATE 100 MCG/2 ML VL ONE ×2 (09:33→11:11)
[2023-05-13] MEDS ORDERED: IOHEXOL 350 MG/ML 100ML IJ ONE ×2 (09:51→09:59)
[2023-05-13] MEDS ORDERED: FUROSEMIDE 20 MG/2 ML VIAL ONE (11:24)
== END 2023-05-13 14:35 | disposition home or self-care (01) ==
LOC: CATH 07:25
PROVIDERS: ATTEND Internal Medicine Cardiovascular Disease
DX: I25.5 Ischemic cardiomyopathy (principal); I11.0 Hypertensive heart disease with heart failure; I50.22 Chronic systolic (congestive) heart failure; I48.91 Unspecified atrial fibrillation; E11.40 Type 2 diabetes mellitus with diabetic neuropathy, unspecified; E11.21 Type 2 diabetes mellitus with diabetic nephropathy; E78.5 Hyperlipidemia, unspecified; Z87.891 Personal history of nicotine dependence; I25.2 Old myocardial infarction; J44.9 Chronic obstructive pulmonary disease, unspecified; I48.92 Unspecified atrial flutter
CPT/HCPCS: 33249; 36415; 71045; 80053; 85025; 85610; 85730; 93005; C1769; C1882; C1887; C1894; C1895; C1898; J1940; J2250; J3010; J3370; Q9967; 99152; 99153

== ENCOUNTER → 2023-06-29 | Outpatient (CLI) | payer MEDICAID ==
[~2023-06-29] MED LIST changes: -AUG875T PO; -HYDR-4902 PO
== END | disposition home or self-care (01) ==
LOC: Rad HDHVI 10:45
PROVIDERS: ATTEND Internal Medicine Cardiovascular Disease
DX: I08.3 Combined rheumatic disorders of mitral, aortic and tricuspid valves (principal); R07.89 Other chest pain; E78.5 Hyperlipidemia, unspecified
CPT/HCPCS: 93306

== ENCOUNTER 2023-08-21 14:17 | Emergency (ER) | payer MEDICAID ==
[~2023-08-21] VITALS: Ht 177.8 cm; Wt 136.3 kg
[2023-08-21 15:53] VITALS: BP 111/69; PULSE 70; RESP 16; TEMP 98.7; O2SAT 95
[2023-08-21] MEDS: LIDOCAINE 1% HCL (LOCAL ANESTH.) INJ 20ML MDV IJ ONE (16:02)
[2023-08-21] MEDS ORDERED: CEPH500C PO (16:28)
[2023-08-21] MEDS: TETANUS-DIPTH-ACEL PERTUSSIS 0.5ML SYR Tdap IM ONE (16:36)
== END 2023-08-21 16:41 | disposition home or self-care (01) ==
LOC: ER 14:17
DX: S81.812A Laceration without foreign body, left lower leg, initial encounter (principal); W45.8XXA Other foreign body or object entering through skin, initial encounter; Y92.096 Garden or yard of other non-institutional residence as the place of occurrence of the external cause; Y93.89 Activity, other specified; Y99.8 Other external cause status; I13.2 Hypertensive heart and chronic kidney disease with heart failure and with stage 5 chronic kidney disease, or end stage renal disease; E11.22 Type 2 diabetes mellitus with diabetic chronic kidney disease; N18.6 End stage renal disease; I50.9 Heart failure, unspecified; Z79.4 Long term (current) use of insulin; Z77.22 Contact with and (suspected) exposure to environmental tobacco smoke (acute) (chronic); Z79.899 Other long term (current) drug therapy
CPT/HCPCS: 12002; 90471; 90715; 99283; J2001; 12032

== ENCOUNTER 2023-12-09 11:11 | Inpatient (IN) | payer MEDICAID ==
[~2023-12-09] VITALS: Ht 180.3 cm; Wt 137.6 kg
[~2023-12-09 11:11] MED LIST changes: -CAR125T PO; +CARV-216 PO; +CEPH500C PO
[2023-12-09] MEDS: SODIUM CHLORIDE 0.9% 1,000 ML IV ONE (12:26)
[2023-12-09] MEDS: DICYCLOMINE HCL (10MG/ML) 2 ML AMPULE IM ONE (12:28)
[2023-12-09] MEDS: SODIUM CHLORIDE 0.9% 500 ML IV ONE (12:34)
[2023-12-09 12:41] LABS: Basophils # (auto) 0 10 ^3/uL (0-0.2); Eosinophils # (auto) 0 10 ^3/uL (0-0.8); Eosinophils % (auto) 0.1 % (0.0-7.0); Lymphocytes # (auto) 0.4 10 ^3/uL (0.4-5.4); Mean Corpuscular Hemoglobin 30.7 pg (28.0-32.0); Mean Corpuscular Hgb Conc. 33.1 g/dL (32.0-36.0); Monocytes # (auto) 0.8 10 ^3/uL (0-1.3)
[2023-12-09 12:43] LABS: Basophils % (auto) 0.1 % (0.0-2.0); Hematocrit 53.2 % (41.0-53.0); Hemoglobin 17.6 g/dL (13.5-17.5); Mean Corpuscular Volume 92.8 fL (80.0-100.0); Monocytes % (auto) 9.3 % (0.0-12.0); Neutrophils # (auto) 7.1 10 ^3/uL (1.6-8.6); Neutrophils % (auto) 85.5 % (37.0-80.0); Nucleated Red Blood Cells % 0.2 %; Red Blood Cells 5.74 10^6/uL (4.5-5.90); Red Cell Distribution Width 16.6 % (11.8-14.3); White Blood Cell 8.3 10^3/uL (4.4-10.8)
[2023-12-09 12:44] LABS: Alanine Aminotransferase 17 U/L (7-40); Alkaline Phosphatase 103 U/L (46-116); Anion Gap 7 (5-15); Aspartate Aminotransferase 10 U/L (13-40); BUN/Creatinine Ratio 34.5 (10.0-20.0); Bilirubin, Total 1.5 mg/dL (0.2-1.0); Blood Urea Nitrogen 60 mg/dL (9-23); Calcium 9.1 mg/dL (8.5-10.1); Carbon Dioxide 23 mmol/L (20-30); Chloride 104 mmol/L (98-107); Glucose 103 mg/dL (74-106); Magnesium 2.4 mg/dL (1.6-2.6); Potassium 4.9 mmol/L (3.5-5.1); Sodium 134 mmol/L (136-145); Total Protein 6.5 g/dL (5.7-8.2)
[2023-12-09 13:51] LABS: Lipase 33 U/L (12-53)
[2023-12-09] MEDS: ASPirin 325 MG TAB PO ONE (14:59)
[2023-12-09] MEDS: FUROSEMIDE 100 MG/10ML VIAL IV ONE (15:10)
[2023-12-09 15:14] VITALS: PULSE 87; RESP 19; O2SAT 94
[2023-12-09 16:40] LABS: COVID19 ANTIGEN SOFIA FIA NEGATIVE (NEGATIVE)
[2023-12-09] MEDS ORDERED: ACETAMINOPHEN 325 MG TAB PO PRN (16:45)
[2023-12-09] MEDS ORDERED: NITROGLYCERIN 0.4 MG SL TAB SL PRN (16:45)
[2023-12-09] MEDS ORDERED: ONDANSETRON HCL 4 MG/2 ML VIAL IV PRN (16:45)
[2023-12-09] MEDS ORDERED: MORPHINE SULFATE INJ 2 MG/ml SYRG IV PRN (16:45)
[2023-12-09] MEDS ORDERED: HYDROcodone-ACET 5/325MG TAB PO PRN (16:45)
[2023-12-09] MEDS ORDERED: DOCUSATE SOD 100 MG CAP PO PRN (16:45)
[2023-12-09] MEDS: glipiZIDE 5 MG TAB PO SCH (18:00)
[2023-12-09 19:24] VITALS: PULSE 75; PULSE 87; RESP 16; RESP 20; O2SAT 95; O2SAT 97
[2023-12-09 20:00] VITALS: PULSE 86; PULSE 87; RESP 20; O2SAT 97
[2023-12-09 21:02] VITALS: BP 100/58; PULSE 75; RESP 16; TEMP 98.1; O2SAT 95
[2023-12-09] MEDS: CARVEDILOL 12.5 MG TAB PO SCH (22:00)
[2023-12-09] MEDS: SACUBITRIL-VALSARTAN 24mg/26mg TAB PO SCH (22:32)
[2023-12-09] MEDS: SODIUM CHLOR 0.9% PF (SALINE LOCK) 10ML VIAL/SYR IV SCH (22:33)
[2023-12-09] MEDS ORDERED: DEXTROSE (50%) 50ML SYRG IV PRN (23:00)
[2023-12-10] VITALS (7 sets, daily range): BP systolic 92–109; BP diastolic 52–67; PULSE 67–93; RESP 16–20; TEMP 97.8–98.7; O2SAT 91–97
[2023-12-10] MEDS: FUROSEMIDE 40 MG TAB PO SCH (06:08)
[2023-12-10] MEDS: ACCU-CHEK COMFORT CURVE STRIP VI SCH (06:10)
[2023-12-10] MEDS: InsuLIN REG 1unit/0.01ml Soln (100units/ml) SC SCH ×2 (06:15→21:56)
[2023-12-10 07:37] LABS: Basophils # (auto) 0 10 ^3/uL (0-0.2); Basophils % (auto) 0.3 % (0.0-2.0); Eosinophils # (auto) 0 10 ^3/uL (0-0.8); Eosinophils % (auto) 0.3 % (0.0-7.0); Hematocrit 51.4 % (41.0-53.0); Hemoglobin 16.6 g/dL (13.5-17.5); Lymphocytes # (auto) 0.7 10 ^3/uL (0.4-5.4); Lymphocytes % (auto) 10.4 % (10.0-50.0); Mean Corpuscular Hemoglobin 29.9 pg (28.0-32.0); Mean Corpuscular Hgb Conc. 32.3 g/dL (32.0-36.0); Mean Corpuscular Volume 92.5 fL (80.0-100.0); Monocytes # (auto) 0.9 10 ^3/uL (0-1.3); Monocytes % (auto) 14.1 % (0.0-12.0); Neutrophils % (auto) 74.9 % (37.0-80.0); Nucleated Red Blood Cells % 0.3 %; Red Blood Cells 5.56 10^6/uL (4.5-5.90); Red Cell Distribution Width 16.3 % (11.8-14.3); White Blood Cell 6.7 10^3/uL (4.4-10.8)
[2023-12-10 07:58] LABS: Alanine Aminotransferase 12 U/L (7-40); Albumin 3.6 g/dL (3.2-4.8); Alkaline Phosphatase 87 U/L (46-116); Anion Gap 7 (5-15); Aspartate Aminotransferase 14 U/L (13-40); BUN/Creatinine Ratio 27.1 (10.0-20.0); Bilirubin, Total 1.1 mg/dL (0.2-1.0); Carbon Dioxide 24 mmol/L (20-30); Chloride 104 mmol/L (98-107); Glucose 70 mg/dL (74-106); Potassium 4.3 mmol/L (3.5-5.1); Sodium 135 mmol/L (136-145); Total Protein 6.3 g/dL (5.7-8.2)
[2023-12-10 07:59] LABS: Blood Urea Nitrogen 45 mg/dL (9-23)
[2023-12-10] MEDS: ASCORBIC ACID 500 MG TAB PO SCH (10:00)
[2023-12-10] MEDS: RIVAROXABAN 20 MG TAB PO SCH (18:00)
[2023-12-11 04:49] VITALS: BP 108/70; PULSE 82; RESP 16; TEMP 98.2; O2SAT 94
[2023-12-11 08:00] VITALS: PULSE 87
[2023-12-11 08:41] VITALS: BP 110/65; PULSE 94; RESP 19; TEMP 97.9; O2SAT 93
[2023-12-11 12:45] VITALS: BP 98/59; PULSE 74; RESP 16; TEMP 98.2; O2SAT 96
[2023-12-11] MEDS ORDERED: CARV6.2517 PO (14:04)
[2023-12-11 15:40] VITALS: BP 126/75
== END 2023-12-11 15:50 | disposition home or self-care (01) | DRG 194 ==
LOC: ER 11:11 → TELE 16:50 → TELE-WESTW 17:37
PROVIDERS: ADMIT Nurse Practitioner Family; ATTEND Internal Medicine
DX: I13.2 Hypertensive heart and chronic kidney disease with heart failure and with stage 5 chronic kidney disease, or end stage renal disease (principal); N17.9 Acute kidney failure, unspecified; I95.9 Hypotension, unspecified; N18.6 End stage renal disease; E11.22 Type 2 diabetes mellitus with diabetic chronic kidney disease; I50.43 Acute on chronic combined systolic (congestive) and diastolic (congestive) heart failure; Z20.822 Contact with and (suspected) exposure to COVID-19; N28.9 Disorder of kidney and ureter, unspecified; G43.909 Migraine, unspecified, not intractable, without status migrainosus; I25.10 Atherosclerotic heart disease of native coronary artery without angina pectoris; Z79.899 Other long term (current) drug therapy; Z79.4 Long term (current) use of insulin
CPT/HCPCS: 36415; 71045; 80053; 82962; 83690; 83735; 83880; 84484; 85025; 87426; 93005; G0378; J1815

== ENCOUNTER → 2024-01-04 | Outpatient (CLI) | payer MEDICAID ==
[~2024-01-04] MED LIST changes: -CARV-216 PO; +CARV6.2517 PO; -FURO1TAB31 PO; -SACU1TAB PO; -SPIR25TA8 PO; -VITA100072 PO
== END | disposition home or self-care (01) ==
LOC: Rad HDHVI 09:49
PROVIDERS: ATTEND Internal Medicine Cardiovascular Disease
DX: I25.5 Ischemic cardiomyopathy (principal); E78.5 Hyperlipidemia, unspecified
CPT/HCPCS: 93306

== ENCOUNTER → 2024-06-21 | Outpatient (CLI) | payer MEDICAID ==
[~2024-06-21] VITALS: Ht 180.3 cm; Wt 134.3 kg
[~2024-06-21] MED LIST changes: +ADENOSINE 113 MG in GIVE UN-DILUTED 0 ML IV ONE; +ADENOSINE 90 MG/30 ML INJ IV ONE
== END | disposition home or self-care (01) ==
LOC: Rad HDHVI 12:58
PROVIDERS: ATTEND Internal Medicine Cardiovascular Disease
DX: I11.0 Hypertensive heart disease with heart failure (principal); I25.10 Atherosclerotic heart disease of native coronary artery without angina pectoris; I50.43 Acute on chronic combined systolic (congestive) and diastolic (congestive) heart failure; I25.5 Ischemic cardiomyopathy; I25.2 Old myocardial infarction; E11.21 Type 2 diabetes mellitus with diabetic nephropathy; I42.0 Dilated cardiomyopathy; E78.00 Pure hypercholesterolemia, unspecified; R00.0 Tachycardia, unspecified; R42 Dizziness and giddiness; R00.2 Palpitations; Z95.0 Presence of cardiac pacemaker; Z82.49 Family history of ischemic heart disease and other diseases of the circulatory system
CPT/HCPCS: 78452; 93005; 96374; 96375; A9500; J0153